=== PATIENT | female | born 1960 | race Caucasian/White ===

== ENCOUNTER → 2020-04-03 14:01 | Outpatient (BNVA) | payer MEDICARE, MEDICAID, SELFPAY | PROVIDERS: PCP Physician Assistant; Visit Provider Family Medicine Adult Medicine | DX: M54.17 Radiculopathy, lumbosacral region (principal); M54.12 Radiculopathy, cervical region; Z87.39 Personal history of other diseases of the musculoskeletal system and connective tissue; Z96.651 Presence of right artificial knee joint; Z96.641 Presence of right artificial hip joint; Z96.642 Presence of left artificial hip joint; Z98.1 Arthrodesis status; Z79.891 Long term (current) use of opiate analgesic | CPT/HCPCS: 99214 ==

== ENCOUNTER → 2020-05-17 09:06 | Outpatient (BNVA) | payer MEDICARE, MEDICAID, SELFPAY | PROVIDERS: PCP Physician Assistant; Referring Provider Physician Assistant; Visit Provider Family Medicine Adult Medicine | DX: M54.17 Radiculopathy, lumbosacral region (principal); M54.12 Radiculopathy, cervical region; Z96.651 Presence of right artificial knee joint; Z96.641 Presence of right artificial hip joint; Z96.642 Presence of left artificial hip joint; Z98.1 Arthrodesis status | CPT/HCPCS: 99212 ==

== ENCOUNTER 2020-06-08 13:18 | Emergency (ER) | payer MEDICARE, MEDICAID, SELFPAY ==
[2020-06-08 13:27] VITALS: BP 135/45; BP 135/79; PULSE 66; PULSE 70; RESP 16; TEMP 36.7; O2SAT 98; O2SAT 99; BMI 23.0
--- NOTE | 2020-06-08 13:36 | XR_ITS ---
EXAMINATION: XR CHEST CLINICAL INFORMATION: Chest pain COMPARISON: 08/09/2012 TECHNIQUE: Frontal view of the chest was obtained. FINDINGS: The cardiomediastinal silhouette is within normal limits. The lungs are well expanded. There is no focal consolidation, edema, or effusion. No pneumothorax. No acute osseous abnormality. Right breast prosthesis is seen. Monitoring leads overlie the chest. XR/XR chest 1V IMPRESSION: No acute findings.
--- NOTE | 2020-06-08 13:36 | CT_ITS ---
EXAMINATION: CT ABDOMEN AND PELVIS WITHOUT CONTRAST CLINICAL INFORMATION: Abdominal pain COMPARISON: 01/03/2020 TECHNIQUE: Multidetector volumetric imaging was performed from the superior aspect of the liver through the pubic symphysis. Sagittal and coronal reformatted images were obtained on the technologist's workstation. This CT examination was performed using dose optimization techniques as appropriate, variously including the following: *Automated exposure control *Adjustment of mA and/or kV according to patient size (this includes techniques or standardized protocols for targeted exams where dose is matched to indication/reason for exam; i.e. extremities or head) *Use of iterative reconstruction technique DLP: 477 mGy-cm FINDINGS: LUNG BASES: The visualized lung bases are unremarkable. LIVER, GALLBLADDER, AND BILIARY TREE: The liver is normal in size, shape, and attenuation. No focal hepatic lesion or biliary ductal dilatation is present. Gallbladder unremarkable. PANCREAS: Mild fatty atrophy of the pancreas. SPLEEN: Unremarkable. ADRENAL GLANDS: Unremarkable. KIDNEYS AND URETERS: The kidneys are normal in size, shape, and attenuation. No hydronephrosis, hydroureter, or calculi seen, although the distal ureters are obscured by beam hardening artifact associated patient's bilateral total hip arthroplasties.. No perinephric stranding. BLADDER: Unremarkable. GASTROINTESTINAL TRACT: The small and large bowel are unremarkable. The appendix is unremarkable. ABDOMINAL WALL: No significant hernia is appreciated. LYMPH NODES: Normal. VASCULAR: Unremarkable. PELVIC VISCERA: Hysterectomy. Ovaries unremarkable. OSSEOUS STRUCTURES: Unremarkable. CT/CT abdomen pelvis wo con IMPRESSION: No significant abnormality.
--- NOTE | 2020-06-08 13:36 | ECG_ITS ---
Test Reason : CHEST PAIN Blood Pressure : / mmHG Vent. Rate : 067 BPM Atrial Rate : 067 BPM P-R Int : 148 ms QRS Dur : 086 ms QT Int : 456 ms P-R-T Axes : 029 011 033 degrees QTc Int : 481 ms Normal sinus rhythm Prolonged QT Abnormal ECG When compared with ECG of 09-AUG-2012 14:20, Nonspecific T wave abnormality, improved in Inferior leads T wave inversion no longer evident in Anterior leads Referred By: Linnea Blake Electronically Signed By:SLICK VARGHESE MD
--- NOTE | 2020-06-08 13:50 | ED.CHESTPAIN ---
HPI - Chest Pain General Chief Complaint: Chest Pain Stated Complaint: VOMITTING/ CHEST PAIN Time Seen by Provider: 06/08/20 13:28 History of Present Illness HPI narrative: Patient is a 60-year-old female with a history of having high cholesterol. Having abdominal pain nausea. Radiates to the chest. Not associated with shortness of breath. The pain is been fairly constant over last 24 hours. No coughing or congestion or upper respiratory symptoms. No diaphoresis. No pain on urination. No history of obstruction. No history of abscess. No history of diverticulitis. No history of abdominal surgery. No fever no chills. No pain on urination. History of GI upset in the past. No history of diabetes, high cholesterol. Positive history of hypertension. No history of smoking. Patient is from home. Related Data Home Medications Medication Instructions Recorded Confirmed clonidine HCl 0.1 mg tablet 0.100f00? mg PO Q6H PRN 03/23/20 05/17/20 dicyclomine 20 mg tablet 20 mg PO 03/23/20 05/17/20 fluoxetine 40 mg capsule 40 mg PO QAM 03/23/20 05/17/20 naloxone 4 mg/actuation nasal spray 0 spray INTRANASAL DIRECTED 04/03/20 05/17/20 omeprazole 20 mg capsule,delayed 20 mg PO DAILY 04/03/20 05/17/20 release trazodone 100 mg tablet 100 mg PO BEDTIME PRN 04/27/20 05/17/20 Previous Rx's Medication Instructions Recorded cyclobenzaprine 10 mg tablet 10 mg PO Q12H #60 tab 03/28/20 hydroxyzine HCl 25 mg tablet 25 mg PO BID PRN 30 Days #60 tab 04/24/20 atorvastatin 40 mg tablet 40 mg PO DAILY #90 tab 04/28/20 trazodone 100 mg tablet 100 mg PO BEDTIME #30 tab 04/28/20 buprenorphine HCl 450 mcg buccal 450 mcg BUCCAL Q12H 30 Days #60 ea 05/17/20 film Allergies Allergy/AdvReac Type Severity Reaction Status Date / Time gabapentin [GABAPENTIN] Allergy Severe SWELLING, Verified 05/17/20 09:46 hives Iodinated Contrast Media Allergy Severe ANAPHYLAXIS Verified 05/17/20 09:46 [IV DYE, IODINE CONTAINING] Review of Systems Review of Systems: Constitutional: No Weight loss, No Fever, No Chills, No Night Sweats, No Fatigue, No Malaise ENT/Mouth: No Hearing loss, No Ear Pain, No Nasal Congestion, No Sinus Pain, No Hoarseness, No sore throat, No Rhinorrhea, No Swallowing Difficulty Eyes: No Eye Pain, No Swelling, No Redness, No Foreign Body, No Discharge, No Vision Changes Cardiovascular: Positive Chest Pain, No SOB, No Dyspnea on Exertion, No Orthopnea, No Edema, No Palpitations Respiratory: No Cough, No Sputum, No Wheezing, No Smoke Exposure, No Dyspnea Gastrointestinal: Positive nausea positive diffuse abdominal pain no melena Genitourinary: no irregular bleeding, No Dysuria, No Urinary Frequency, No Hematuria, No Urinary Incontinence, No Urgency, No Flank Pain, No Urinary Flow Changes, No Hesitancy Musculoskeletal: No joint pain, No Myalgias, No Joint Swelling Skin: No Skin Lesions, No rash Neuro: No Weakness, No Numbness, No Paresthesias, No Loss of Consciousness, No Dizziness, No Headache Psych: No Anxiety/Panic, No Depression, No SI/HI/AH/VH, No Social Issues, Heme/Lymph: No Bruising, No Bleeding,No Lymphadenopathy Endocrine: No Polyuria, No Polydipsia, No Temperature Intolerance PMFSH Past Medical History Attestation statement: The following information was validated with the patient. Medical History Anxiety Cervical radiculopathy Depression FH: bilateral hip replacements History of avascular necrosis of capital femoral epiphysis HTN (hypertension) IBS (irritable bowel syndrome) Lumbosacral neuritis Surgical History H/O breast implant H/O cervical discectomy History of ankle surgery History of fusion of cervical spine History of left hip replacement History of right hip replacement History of right knee joint replacement Status post right knee replacement Family History Family History (Updated 04/03/20 @ 14:45 by Bella Sanabria RN) Father No problems noted. Mother No problems noted. Son No problems noted. Maternal Grandfather No problems noted. Social History Social History (Updated 04/03/20 @ 14:45 by Bella Sanabria RN) Alcohol intake: current Alcohol intake frequency: a few times a week Alcohol type: beer Smoking Status: Never smoker Use of substances other than those prescribed or required for medical reasons: No Advance Directives: No Advance Directives Information Provided: Yes Physical Exam Vital Signs: Vital Signs: Last Vital Signs Temp 98.1 F 06/08/20 13:27 Pulse 66 06/08/20 13:27 Resp 16 06/08/20 13:27 BP 135/45 L 06/08/20 13:27 Pulse Ox 98 06/08/20 13:27 Body Mass Index 23.0 Appearance: Alert. Oriented X3. No acute distress. Eyes: Pupils equal, round and reactive to light. ENT: Pharynx normal. Neck: Normal inspection. Neck supple. No lymph nodes noted. No crepitus CVS: Normal heart rate and rhythm. Pulses normal. Normal S1 and S2 Respiratory: No respiratory distress. Breath sounds normal. No Wheezing. No rales Abdomen: Soft and nontender. No rigidity. No distention. good BS x4 Skin: Skin warm and dry. Normal skin color. Normal skin turgor. Extremities: No lower extremity edema. Neurovascular intact to all extremities. No Lacerations. No Rash Neuro: Oriented X 3. No motor deficit. No sensory deficit. Moving all extermities. No slurred speech MDM - Chest Pain MDM Narrative Medical decision making narrative: CT scan of the abdomen grossly negative for any acute findings. No abscess, perforation, abdominal aortic aneurysm noted. Patient's EKG showed a sinus pattern diffuse T-wave flattening noted. Patient has chest pain that is atypical for ACS. Patient's cardiac enzyme was negative. Pain has been greater than 6 hours. Unlikely secondary to ACS. Patient's has a history of chronic abdominal pain. Will discharge patient Differential Diagnosis Differential diagnosis: Likely pneumothorax, stable angina, unstable angina pectoris, atypical chest pain, st elevation myocardial infarction, costochondritis, chest pain and biliary colic Medical Records Data Attestation: I reviewed the patient's medical records. Lab Data Attestation: I reviewed the patient's lab results. Result diagrams: 06/08/20 13:56 06/08/20 13:56 Labs: Lab Results 06/08/20 06/08/20 06/08/20 Range/Units 13:56 13:56 13:56 WBC 5.4 (4.8-10.8) X10*3/uL RBC 3.62 L (4.20-5.50) X10*6/uL Hgb 11.3 L (12.0-16.0) g/dl Hct 33.6 L (37-47) % MCV 92.8 (80-98) fL MCH 31.2 (27.0-33.0) pg MCHC 33.6 (31.0-35.0) g/dl RDW 12.7 (11.0-16.0) % Plt Count 275 (160-400) X10*3/uL MPV 9.5 (9.4-12.3) fL Immature Gran % (Auto) 0.4 (0.0-0.4) % Neut % (Auto) 71.0 (45-73) % Lymph % (Auto) 22.6 (20-40) % [place] % (Auto) 5.2 (2-11) % Eos % (Auto) 0.2 (0-4) % Baso % (Auto) 0.6 (0-2) % Lymph # (Auto) 1.2 (1.2-4.9) X10*3/uL [place] # (Auto) 0.3 (0.1-1.2) X10*3/uL Eos # (Auto) 0.0 (0.0-0.4) X10*3/uL Baso # (Auto) 0.0 (0.0-0.2) X10*3/uL Abs Immat Gran (auto) 0.02 (0.00-0.03) X10*3/uL Absolute Neuts (auto) 3.8 (2.0-8.3) X10*3/uL Absolute Nucleated RBC 0.000 (0.0-0.012) X10*3/uL Nucleated RBC % (auto) 0.0 (0.0-0.2) /100WBC Sodium 137 (135-145) mmol/L Potassium 4.0 (3.3-5.1) mmol/l Chloride 100 (96-108) mmol/L Carbon Dioxide 25 (22-29) mmol/L Anion Gap 16 (12-20) BUN 15 (9-16) mg/dL Creatinine 0.78 (0.5-1.4) mg/dL Estim Creat Clear Calc 65.0 Estimated GFR > 60 Random Glucose 101 (60-115) mg/dL Calcium 8.5 (8.4-10.2) mg/dL Total Bilirubin 0.4 (0.0-1.0) mg/dL Direct Bilirubin 0.2 (0.0-0.5) mg/dL AST 30 (5-31) U/L ALT 24 (0-31) U/L Alkaline Phosphatase 90 (39-117) U/L Troponin I High Sens < 3.5 (<3.5-17.0) ng/L Total Protein 6.4 L (6.5-8.0) g/dL Albumin 4.0 (3.5-5.0) g/dL Lipase 19 (8-78) U/L ECG Data ECG #1: Interpretation: Sinus heart rate is 70 VT QRS QT within normal limits diffuse T-wave flattening noted. Discharge Plan Discharge Clinical Impression: Chest pain, Abdominal pain in female Patient Disposition: Home, Self-Care Instructions: Abdominal Pain (ED), Chest Pain (ED) Prescriptions: No Action cyclobenzaprine 10 mg tablet 10 mg PO Q12H Qty: 60 RF: 2 hydroxyzine HCl 25 mg tablet 25 mg PO BID PRN (Reason: sleep) 30 Days Qty: 60 RF: 2 trazodone 100 mg tablet 100 mg PO BEDTIME PRNRF: 0 atorvastatin 40 mg tablet 40 mg PO DAILY Qty: 90 RF: 1 trazodone 100 mg tablet 100 mg PO BEDTIME Qty: 30 RF: 3 omeprazole 20 mg capsule,delayed release(DR/EC) 20 mg PO DAILY RF: 0 Narcan 4 mg/actuation spray,non-aerosol 0 spray intranasal DIRECTED RF: 0 [place] 450 mcg film 450 mcg buccal Q12H 30 Days Qty: 60 RF: 1 clonidine HCl 0.1 mg tablet 0.100f00? mg PO Q6H PRN (Reason: withdrawal symptom) RF: 0 dicyclomine 20 mg tablet 20 mg PO RF: 0 fluoxetine 40 mg capsule 40 mg PO QAM RF: 0 Referrals: Gaston Mejia PA-C [Primary Care Provider] - 2 days
[2020-06-08] MEDS: 0.9 % Sodium Chloride 1,000 ML 999 ML IVCONT (13:53)
[2020-06-08] MEDS: Acetaminophen 325 MG TABLET 650 MG PO (13:53)
[2020-06-08 14:05] LABS: MANUAL DIFF FLAG NO
[2020-06-08 14:07] LABS: Basophils Percent Auto 0.6 % (0-2); Eosinophils Percent Auto 0.2 % (0-4); Hematocrit 33.6 % (37-47); Hemoglobin 11.3 g/dl (12.0-16.0); Imm Gran Abs Auto 0.02 X10*3/uL (0.00-0.03); Imm Gran Pct Auto 0.4 % (0.0-0.4); Lymphocytes Absolute Auto 1.2 X10*3/uL (1.2-4.9); Lymphocytes Percent Auto 22.6 % (20-40); Mean Corpuscular HGB Conc 33.6 g/dl (31.0-35.0); Mean Corpuscular Hemoglobin 31.2 pg (27.0-33.0); Mean Corpuscular Volume 92.8 fL (80-98); Mean Platelet Volume 9.5 fL (9.4-12.3); Monocytes Absolute Auto 0.3 X10*3/uL (0.1-1.2); Monocytes Percent Auto 5.2 % (2-11); Neutrophils Absolute Auto 3.8 X10*3/uL (2.0-8.3); Platelet Count 275 X10*3/uL (160-400); Red Blood Count 3.62 X10*6/uL (4.20-5.50); Red Cell Distribution Width 12.7 % (11.0-16.0); White Blood Count 5.4 X10*3/uL (4.8-10.8)
[2020-06-08 14:26] LABS: Alanine Aminotransferase 24 U/L (0-31); Alkaline Phosphatase 90 U/L (39-117); Anion Gap 16 (12-20); Aspartate Amino Transferase 30 U/L (5-31); Bilirubin Direct 0.2 mg/dL (0.0-0.5); Bilirubin Total 0.4 mg/dL (0.0-1.0); Blood Urea Nitrogen 15 mg/dL (9-16); Calcium 8.5 mg/dL (8.4-10.2); Carbon Dioxide 25 mmol/L (22-29); Chloride 100 mmol/L (96-108); Estimated Glomerular Filt Rate > 60; Glucose Random 101 mg/dL (60-115); Lipase 19 U/L (8-78); Sodium 137 mmol/L (135-145); Total Protein 6.4 g/dL (6.5-8.0)
[2020-06-08 14:30] LABS: Troponin-I High Sensitivity < 3.5 ng/L (<3.5-17.0)
== END 2020-06-08 15:54 | disposition home or self-care (01) ==
PROVIDERS: Emergency Provider Emergency Medicine Emergency Medical Services; PCP Physician Assistant
DX: R07.9 Chest pain, unspecified (principal); R10.9 Unspecified abdominal pain; E78.00 Pure hypercholesterolemia, unspecified; Z79.899 Other long term (current) drug therapy
CPT/HCPCS: 36415; 71045; 74176; 80048; 80076; 83690; 84484; 85025; 93005; 96361; 96374; 99284

== ENCOUNTER 2021-04-05 10:08 | Outpatient (REF) | payer MEDICARE, MEDICAID, SELFPAY ==
[2021-04-05 11:41] LABS: Hemoglobin 12.9 g/dl (12.0-16.0); Mean Corpuscular HGB Conc 33.9 g/dl (31.0-35.0); Mean Corpuscular Hemoglobin 30.4 pg (27.0-33.0); Mean Corpuscular Volume 89.4 fL (80-98); Mean Platelet Volume 9.6 fL (9.4-12.3); Platelet Count 462 X10*3/uL (160-400); Red Blood Count 4.25 X10*6/uL (4.20-5.50); Red Cell Distribution Width 12.2 % (11.0-16.0); White Blood Count 7.5 X10*3/uL (4.8-10.8)
[2021-04-05 14:06] LABS: Alanine Aminotransferase 16 U/L (0-31); Albumin Level 4.9 g/dL (3.5-5.0); Alkaline Phosphatase 98 U/L (39-117); Anion Gap 17 (12-20); Aspartate Amino Transferase 22 U/L (5-31); Bilirubin Total 0.8 mg/dL (0.0-1.0); Blood Urea Nitrogen 9 mg/dL (9-16); Calcium 10.4 mg/dL (8.4-10.2); Carbon Dioxide 27 mmol/L (22-29); Chloride 100 mmol/L (96-108); Cholesterol 219 mg/dL; Estimated Glomerular Filt Rate > 60; Glucose Fasting 113 mg/dL (60-99); HDL Cholesterol 81 mg/dL; LDL Cholesterol Calculated 111 mg/dl; Potassium 3.5 mmol/L (3.3-5.1); Sodium 140 mmol/L (135-145); Total Protein 7.8 g/dL (6.5-8.0); Triglycerides 135 mg/dL
[2021-04-05 14:14] LABS: TSH reflex Free T4 0.84 uIU/mL (0.32-4.0)
== END 2021-04-05 10:09 | disposition home or self-care (01) ==
LOC: HO.HMGCLDS 10:08
PROVIDERS: PCP Physician Assistant; Visit Provider Physician Assistant
DX: I10 Essential (primary) hypertension (principal); E78.2 Mixed hyperlipidemia
CPT/HCPCS: 36415; 80053; 80061; 84443; 85027

== ENCOUNTER 2022-11-01 10:48 | Outpatient (REF) | payer MEDICARE, MEDICAID, SELFPAY ==
--- NOTE | ~2022-11-01 | XR_ITS ---
EXAMINATION: XR CHEST CLINICAL INFORMATION: Cough. COMPARISON: Chest radiograph dated 06/08/2020. TECHNIQUE: 2 views of the chest were obtained. FINDINGS: No airspace consolidation. No pleural effusion or pneumothorax. Stable cardiomediastinal silhouette. Right chest wall breast implant. XR/XR chest 2V IMPRESSION: No acute cardiopulmonary findings.
== END 2022-11-01 10:49 | disposition home or self-care (01) ==
LOC: HO.HMGCX 10:48
PROVIDERS: PCP Physician Assistant; Visit Provider Physician Assistant Medical
DX: R05.9 Cough, unspecified (principal)
CPT/HCPCS: 71046

== ENCOUNTER 2022-12-21 15:29 | Emergency (ER) | payer MEDICARE, MEDICAID, SELFPAY ==
[2022-12-21 15:49] VITALS: BP 103/79; PULSE 112; RESP 18; TEMP 36.6; O2SAT 90; BMI 20.4
[2022-12-21 15:56] VITALS: PULSE 102; O2SAT 97
--- NOTE | 2022-12-21 16:01 | ED_ITS ---
HPI - General Adult General Chief complaint: General Medical Stated complaint: SORE THROAT Time Seen by Provider: 12/21/22 16:31 Source: patient Mode of arrival: ambulatory Limitations: no limitations History of Present Illness HPI narrative: Patient history of anxiety depression hypertension IBS comes in with sore throat for the last 4- 5 days, does have muffled voice no fever no chills difficulty in swallowing no stridor no shortness of breath patient does have cough for last 5 months mostly dry had x-ray last month which was negative for last 2 days patient unable to take any liquids even spitting it out because of pain does not go down Related Data Home Medications Medication Instructions Recorded Confirmed clonidine HCl 0.1 mg tablet 0.100f00? mg PO Q6H PRN withdrawal 03/23/20 11/01/22 symptom dicyclomine 20 mg tablet 20 mg PO 03/23/20 11/01/22 omeprazole 20 mg capsule,delayed 20 mg PO DAILY 04/03/20 11/01/22 release Previous Rx's Medication Instructions Recorded trazodone 100 mg tablet 100 mg PO BEDTIME #30 tabs 12/05/21 amoxicillin 500 mg capsule 2,000 mg PO ONCE 1 day #4 caps 12/17/21 blood pressure monitor #1 ea 12/24/21 hydroxyzine HCl 25 mg tablet 25 mg PO BID PRN for insomnia #60 06/02/22 tabs buprenorphine HCl 750 mcg buccal 750 mcg buccal Q12H 30 days #60 ea 09/16/22 film cyclobenzaprine 10 mg tablet 10 mg PO Q12H #60 tabs 09/16/22 duloxetine 40 mg capsule,delayed 40 mg PO DAILY #30 caps 09/16/22 release benzonatate 200 mg capsule 200 mg PO BID-TID PRN cough #30 11/01/22 caps hydrochlorothiazide 25 mg tablet 25 mg PO DAILY #30 tabs 11/01/22 atorvastatin 40 mg tablet 40 mg PO DAILY #90 tabs 11/19/22 Allergies Allergy/AdvReac Type Severity Reaction Status Date / Time gabapentin [GABAPENTIN] Allergy Severe SWELLING, Verified 12/21/22 16:35 hives Iodinated Contrast Media Allergy Severe ANAPHYLAXIS Verified 12/21/22 16:35 [IV DYE, IODINE CONTAINING] Review of Systems Review of Systems: Yes all other systems are reviewed and are negative PMFSH Past Medical History Medical History Anxiety Cervical radiculopathy Depression FH: bilateral hip replacements History of avascular necrosis of capital femoral epiphysis HTN (hypertension) IBS (irritable bowel syndrome) Lumbosacral neuritis Surgical History H/O breast implant H/O cervical discectomy History of ankle surgery History of fusion of cervical spine History of left hip replacement History of right hip replacement History of right knee joint replacement Status post right knee replacement Family History Family History Father Schizophrenia Mother Osteoporosis Son No problems noted. Maternal Grandfather No problems noted. Brother In good health Sister In good health Other Mental health disorder Substance use disorder Social History Social History Housing: Apartment Alcohol intake: current Alcohol intake frequency: a few times a week Alcohol type: beer Patient Tobacco Use Status: Never used Tobacco Smoked in Last 30 Days: No e-Cigarette/Vaping Use: Never Used Second Hand Smoke Exposure: Yes Use of substances other than those prescribed or required for medical reasons: No Advance Directives: No Advance Directives Information Provided: No Patient : No service: No Current occupational status: disabled Cognitive needs: No Hearing needs: No Vision needs: No Physical Exam ED Vital Signs: Vital Signs - 24 hr 12/21/22 15:49 12/21/22 16:03 12/21/22 18:28 Temperature 98 F Pulse Rate 112 H 106 H 99 Respiratory Rate 18 22 H 26 H Blood Pressure 103/79 134/73 153/72 H Pulse Oximetry 90 L 97 95 Oxygen Delivery Method Room Air Room Air Room Air 12/21/22 20:29 12/21/22 22:17 Temperature 97.9 F 98.3 F Pulse Rate 93 92 Respiratory Rate 20 20 Blood Pressure 135/73 125/59 L Pulse Oximetry 95 96 Oxygen Delivery Method Room Air Room Air BMI result Body Mass Index 20.4 Appearance: Alert. Oriented X3. No acute distress. ENT: Edematous swelling of uvula and bilat peritonsillar area no stridor no exudates diffuse erythema++ Oral Mucosa moist Neck: Normal inspection. Neck supple. No cervical lymphadenopathy CVS: Normal heart rate and rhythm. Pulses normal. Respiratory: No respiratory distress. Equal air entry bilateral, no wheezing/rales/rhonchi Abdomen: Soft and nontender. Bowel sounds are present, Skin: Skin warm and dry. Normal skin color. Normal skin turgor. Extremities: No lower extremity edema. No calf tenderness Neuro: Oriented X 3. Course Course Course Narrative: RME: 62 yold female presents to the ED sore throat and drooling for 3 days. patient not able tolerate solid foods or liquids. patient at triage 96 % to 90% 02 saturation. labs ordered. Soft tiissue CT neck ordered. decadron ordered. patient muffled voice, sore throat, and drooling in triage Medications Administered Discontinued Medications Generic Name Dose Route Start Last Admin Trade Name Freq PRN Reason Stop Dose Admin Dexamethasone Sodium Phosphate 10 mg 12/21/22 15:52 12/21/22 16:35 Dexamethasone Sod Phosphate 10 Mg/Ml Vial IVPUSH 12/21/22 15:53 10 mg ONCE ONE Administration Diphenhydramine HCl 25 mg 12/21/22 19:58 12/21/22 20:30 Diphenhydramine Hcl 50 Mg/Ml Vial IVPUSH 12/21/22 19:59 25 mg ONCE ONE Administration Sodium Chloride 1,000 mls @ 999 mls/hr 12/21/22 16:57 12/21/22 18:25 Ns IV 12/21/22 17:57 Infused .Q1H1M ONE Infusion Ceftriaxone Sodium 1 gm/ 50 mls @ 100 mls/hr 12/21/22 16:57 12/21/22 17:43 Sodium Chloride IV 12/21/22 17:26 Infused ONCE ONE Infusion Potassium Chloride 10 meq in 100 mls @ 100 mls/hr 12/21/22 21:32 12/21/22 23:07 Potassium Chloride/H20 IV 12/21/22 22:31 Infused ONCE ONE Infusion Sodium Chloride 1,000 mls @ 999 mls/hr 12/21/22 22:15 12/21/22 23:07 Ns IV 12/21/22 23:15 Infused .Q1H1M ALYSSA Infusion Ketorolac Tromethamine 30 mg 12/21/22 16:57 12/21/22 17:09 Ketorolac Tromethamine 30 Mg/Ml Vial IVPUSH 12/21/22 16:58 30 mg ONCE ONE Administration Morphine Sulfate 2 mg 12/21/22 19:58 12/21/22 20:31 Morphine Sulfate 2 Mg/Ml Cartridge IVPUSH 12/21/22 19:59 2 mg ONCE ONE Administration Protocol Potassium Bicarbonate 25 meq 12/21/22 19:57 12/21/22 22:06 Potassium Bicarbonate/Cit Ac 25 Meq Tablet.Eff PO 12/21/22 19:58 Not Given ONCE ONE Medical Decision Making Medical Decision Making MDM Narrative: Patient refused parapharyngeal inflammation without any significant fluid collection unable to swallow drink even liquids for last 2 days saturating 95% at room air no stridor noticed no ENT service available at our hospital or neighboring hospital case discussed with transfer team for [facility] accepted the patient to be transferred to ED under Dr. dodd patient received 10 mg IV Decadron and IV Rocephin was also given potassium 10 mEq IV rapid strep was negative chest x-ray negative for infiltrate Lab Data [facility] Lab Attestation statement: I reviewed the patient's lab results. 12/21/22 16:25 12/21/22 16:25 Labs: Lab Results 12/21/22 12/21/22 12/21/22 Range/Units 16:25 16:25 17:16 WBC 20.9 H (4.8-10.8) X10*3/uL RBC 3.49 L (4.20-5.50) X10*6/uL Hgb 11.3 L (12.0-16.0) g/dl Hct 32.8 L (37.0-47.0) % MCV 94.0 (80.0-98.0) fL MCH 32.4 (27.0-33.0) pg MCHC 34.5 (31.0-35.0) g/dl RDW 12.5 (11.0-16.0) % Plt Count 365 (160-400) X10*3/uL MPV 8.9 L (9.4-12.3) fL Immature Gran % (Auto) 0.5 H (0.0-0.4) % Neut % (Auto) 84.1 H (45-73) % Lymph % (Auto) 6.8 L (20-40) % [place] % (Auto) 8.1 (2-11) % Eos % (Auto) 0.1 (0-4) % Baso % (Auto) 0.4 (0-2) % Lymph # (Auto) 1.4 (1.2-4.9) X10*3/uL [place] # (Auto) 1.7 H (0.1-1.2) X10*3/uL Eos # (Auto) 0.0 (0.0-0.4) X10*3/uL Baso # (Auto) 0.1 (0.0-0.2) X10*3/uL Abs Immat Gran (auto) 0.11 H (0.00-0.03) X10*3/uL Absolute Neuts (auto) 17.5 H (2.0-8.3) x10*3/uL Absolute Nucleated RBC 0.000 (0.0-0.012) X10*3/uL Nucleated RBC % (auto) 0.0 (0.0-0.2) /100WBC Smear Tech's Comments VERIFIED Sodium 140 (135-145) mmol/L Potassium 3.1 L (3.3-5.1) mmol/L Chloride 97 (96-108) mmol/L Carbon Dioxide 27 (22-29) mmol/L Anion Gap 19 (12-20) BUN 5 L (9-16) mg/dL Creatinine 0.75 (0.5-1.4) mg/dL Estim Creat Clear Calc 65.6 Estimated GFR > 60 Random Glucose 106 (60-115) mg/dL Calcium 10.4 H (8.4-10.2) mg/dL Total Bilirubin 0.7 (0.0-1.0) mg/dL AST 36 H (5-31) U/L ALT 26 (0-31) U/L Alkaline Phosphatase 107 (39-117) U/L Total Protein 7.4 (6.5-8.0) g/dL Albumin 4.3 (3.5-5.0) g/dL S. pyogenes GrpA FRANCIE Negative (Negative) Radiology Impression Discussion of test interpretation with radiology: I have reviewed the radiologist's reading. Radiologist Impression: CT/CT soft tissue neck wo IV con IMPRESSION: The diagnostic accuracy of this examination is limited due to the absence of intravenous contrast. There is asymmetric thickening of the right tonsillar pillar with associated stranding within the parapharyngeal space. There is also low-density mucosal thickening of the right lateral aspect of the epiglottis. These findings may simply represent a manifestation of pharyngitis/tonsillitis however a mucosal neoplasm cannot be definitively excluded on the basis of this examination therefore correlation with direct visualization is recommended. There are a few somewhat prominent albeit otherwise nonspecific cervical lymph nodes. ? There are chronic changes of an anterior cervical discectomy and fusion with bridging bone completely fuses the C4-C6 vertebra. There is junctional spondylosis above and below the fused segments at the levels of C3-C4 and C6-C7. Slight anterolisthesis of C7 on T1 related to advanced facet degenerative changes at this level. Canal patency is not well assessed on this examination due to inherent limitations of CT without intrathecal contrast. If there are clinical symptoms of compressive myelopathy then a dedicated cervical spine MRI can be obtained for better anatomic characterization of the cord and canal. Discharge Plan Discharge Clinical Impression: Pharyngeal inflammation, Dysphagia Patient Disposition: [facility] Hospital Transfer Details: [facility] ED Dr. dodd Prescriptions: No Action trazodone 100 mg tablet 100 mg PO BEDTIME Qty: 30 1RF amoxicillin 500 mg capsule 2,000 mg PO ONCE 1 Days Qty: 4 0RF Rx Instructions: Take 1 hour prior to dental procedure hydroxyzine HCl 25 mg tablet 25 mg PO BID PRN (Reason: for insomnia) Qty: 60 3RF buprenorphine HCl 750 mcg film 750 mcg buccal Q12H 30 Days Qty: 60 0RF cyclobenzaprine 10 mg tablet 10 mg PO Q12H Qty: 60 3RF duloxetine 40 mg capsule,delayed release(DR/EC) 40 mg PO DAILY Qty: 30 3RF atorvastatin 40 mg tablet 40 mg PO DAILY Qty: 90 0RF benzonatate 200 mg capsule 200 mg PO BID-TID PRN (Reason: cough) Qty: 30 0RF hydrochlorothiazide 25 mg tablet 25 mg PO DAILY Qty: 30 1RF (DME) blood pressure monitor Kit See Rx Instructions .Route Qty: 1 0RF Rx Instructions: As directed omeprazole 20 mg capsule,delayed release(DR/EC) 20 mg PO DAILY clonidine HCl 0.1 mg tablet 0.100f00? mg PO Q6H PRN (Reason: withdrawal symptom) dicyclomine 20 mg tablet 20 mg PO Interventions: Acute Care Transfer Worksheet (ED) Last Done: 12/21/22 23:12 Discharge Date/Time: 12/21/22 23:13
[2022-12-21 16:03] VITALS: BP 134/73; PULSE 106; RESP 22; O2SAT 97
--- NOTE | 2022-12-21 16:47 | PC.NURSE ---
PT IN ROOM. SaO2 high 90s. pt restless, coughing. Throat red and swollow, difficult visibility due to swelling but airway patent, auscultation of airway revealed good passage of air flow. lung sounds clear throughout. pt tachy on the monitor. other Vitals stable. MD to see pt
--- NOTE | 2022-12-21 17:35 | PC.NURSE ---
pt c/o R ear pain associated with R sided throat pain, tympanic membrane clearly visualized, no drainage from ear
[2022-12-21 18:28] VITALS: BP 153/72; PULSE 99; RESP 26; O2SAT 95
[2022-12-21 20:29] VITALS: BP 135/73; PULSE 93; RESP 20; TEMP 36.6; O2SAT 95
--- NOTE | 2022-12-21 20:39 | PC.NURSE ---
Pt medicated for pain via IV as ordered. Very difficult to swallow liquids and is unable to swallow potassium in water as it is very painful. Pt reports it gets stuck first before it goes down. aware
[2022-12-21 22:17] VITALS: BP 125/59; PULSE 92; RESP 20; TEMP 36.8; O2SAT 96
--- NOTE | 2022-12-21 23:12 | PC.NURSE ---
Nursing report given to nurse Brown at [facility]. Pt being transferred via EMS.
== END 2022-12-21 23:13 | disposition short-term general hospital (02) ==
PROVIDERS: Emergency Provider Internal Medicine; PCP Physician Assistant
DX: J02.9 Acute pharyngitis, unspecified (principal); R13.10 Dysphagia, unspecified; R05.9 Cough, unspecified; Z20.822 Contact with and (suspected) exposure to COVID-19; Z20.828 Contact with and (suspected) exposure to other viral communicable diseases; Z79.899 Other long term (current) drug therapy
CPT/HCPCS: 36415; 70490; 71045; 80053; 85025; 87651; 96365; 96375; 96376; 99285; J0696; J1100; J1200; J1885; J2270

== ENCOUNTER 2023-01-21 10:03 | Outpatient (AMB) | payer MEDICARE, MEDICAID, SELFPAY ==
[2023-01-21 10:06] VITALS: BP 114/80; PULSE 90; O2SAT 96; BMI 20.8
--- NOTE | 2023-01-21 10:06 | A.OFFPC_ITS ---
Vital Signs 01/21/23 10:06 Height 5 ft 3 in Weight 117 lb 6 oz BMI 20.8 BP 114/80 Blood Pressure Location Lt brachial Position Sitting Pulse 90 Pulse Source Pulse Oximeter Pulse Oximetry (%) 96 Oxygen Delivery Method Room Air Intake Visit Reasons: Medication review Intake Note: Pt is here for medication review with PCP. Cost Manager Required: No Accompanied by: Self / Same As Patient Allergies gabapentin [GABAPENTIN] Allergy (Severe, Verified 01/21/23 10:24) SWELLING, hives Iodinated Contrast Media [IV DYE, IODINE CONTAINING] Allergy (Severe, Verified 01/21/23 10:24) ANAPHYLAXIS Medication List - Last Reconciled 01/21/23 by Gaston Mejia PA-C atorvastatin 40 mg PO DAILY blood pressure monitor As directed buprenorphine HCl 750 mcg buccal Q12H 30 days calcium carbonate-vitamin D3 600 mg-20 mcg (800 unit) 1 tab PO DAILY clonidine HCl 0.100f00? mg PO Q6H PRN cyclobenzaprine 10 mg PO Q12H dicyclomine 20 mg PO hydrochlorothiazide 25 mg PO DAILY omeprazole 20 mg PO DAILY trazodone 100 mg PO BEDTIME Tobacco use date assessed: 06/24/22 Dental Screening Dental Screen Date: 01/21/23 Did you have a dental visit in the last 12 months?: Yes Did you have a dental problem in the last 6 months where you did not have access to dental care?: No Was dental information given to patient?: Patient has dentist HPI Medication review HPI Details Patient is a 62 -year-old female here today for follow-up visit Patient has a past medical history significant for lumbosacral neuritis, anxiety, hypertension, hyperlipidemia depression, cervical radiculopathy, osteonecrosis of right ankle and hips. Concerns--> patient recently admitted to [facility] for acute dysphasia non done aphasia. Was found to have Mary off a Godfrey and fair and she will inflammation. ENT consulted and did laryngoscopy without any concerning evidence. She did have an endoscopy that did show evidence of esophageal candidiasis and was started on antifungal therapy. She reports currently her swelling is much improved. She does report her throat clearing cough has reoccurred. .. Hyperlipidemia:? Has been on statin therapy.? Most recent cholesterol panel remains borderline high with total cholesterol 219. . Hypertension:? She reports blood pressures at home have been stable.? Denies any headaches, chest discomfort or palpitations.? Will continue her on current dose of lisinopril hydrochlorothiazide.. .. Lumbar sacral neuritis: Continues on Belbuca 750 mcg b.i.d. with decent pain relief. Laboratory Tests 12/21/22 12/21/22 16:25 17:16 WBC 20.9 H RBC 3.49 L S. pyogenes GrpA N AT Negative [facility] Medical History Anxiety Cervical radiculopathy Depression FH: bilateral hip replacements History of avascular necrosis of capital femoral epiphysis HTN (hypertension) IBS (irritable bowel syndrome) Lumbosacral neuritis Surgical History H/O breast implant H/O cervical discectomy History of ankle surgery History of fusion of cervical spine History of left hip replacement History of right hip replacement History of right knee joint replacement Status post right knee replacement Family History Father Schizophrenia Mother Osteoporosis Son No problems noted. Maternal Grandfather No problems noted. Brother In good health Sister In good health Other Mental health disorder Substance use disorder Social History Housing: Apartment Alcohol intake: current Alcohol intake frequency: a few times a week Alcohol type: beer Patient Tobacco Use Status: Never used Tobacco e-Cigarette/Vaping Use: Never Used Second Hand Smoke Exposure: Yes service: No Current occupational status: disabled Cognitive needs: No Hearing needs: No Vision needs: No Questionnaire Thrive Questionnaire Date Thrive assessed: 06/24/22 FAWN-7 AMB Questionnaire FAWN-7 Date FAWN - 7 assessed: 06/24/22 Source: Developed by Drs. Paul Fraser, Kelsey Salcido, Jj Bateman and colleagues, with an educational denise from [employer] Review of Systems Const Denies headache(s) Eyes Denies loss of vision ENT Denies vertigo, Denies dizziness, Denies headache(s) and Denies sore throat Card Denies chest pain, Denies leg edema and Denies lightheadedness Resp Denies cough, Denies hemoptysis and Denies wheezing GI Denies abdominal pain, Denies melena, Denies constipation, Denies diarrhea and Denies vomiting Denies urinary frequency, Denies dysuria and Denies urinary urgency Musc Denies arthralgias, Denies joint swelling, Denies numbness and Denies tingling Neuro Denies Abnormal speech present, Denies behavioral changes, Denies vertigo, Denies dizziness, Denies headache(s), Denies loss of vision, Denies memory loss, Denies numbness and Denies tingling Psych Denies anxiety, Denies behavioral changes, Denies depression, Denies memory loss and Denies panic attacks Jd/Lymph Denies easy bleeding and Denies easy bruising Aller/Immun Denies wheezing Physical exam (Primary Care) Vital Signs: Last Vital Signs Pulse 90 01/21/23 10:06 BP 114/80 01/21/23 10:06 Pulse Ox 96 01/21/23 10:06 Oxygen Delivery Method Room Air 01/21/23 10:06 BMI result Body Mass Index 20.8 Tobacco/Smoking Status: Tobacco use Status Tobacco use date assessed 06/24/22 01/21/23 10:09 Patient Tobacco Use Status Never used Tobacco 01/21/23 10:09 e-Cigarette/Vaping Use Never Used 01/21/23 10:09 Thrive Assessment: Date of Thrive Assessment Date Thrive assessed 06/24/22 01/21/23 10:09 Const General: healthy appearing, no acute distress, alert and awake Nutritional Appearance: well nourished Orientation/consciousness: oriented to person, oriented to place and oriented to time HENMT Ears: TM's normal bilaterally General nose exam: Normal nasal mucous membranes and turbinates present Eyes Conjunctivae: conjunctivae normal Sclerae: sclerae normal Pupils: Equal, round and reactive pupils present Neck Neck: Yes no lymphadenopathy and Yes no JVD Thyroid: Thyroid normal Carotids: no bruits Resp Effort & Inspection: normal respiratory effort and not tachypneic Auscultation: no crackles, no rales, no rhonchi and no wheezes Cardio Rate: regular rate Rhythm: regular rhythm Heart sounds: no murmurs and normal S1 and S2 GI Palpation (GI): Soft to palpation, nontender, no hepatomegaly and no splenomegaly Auscultation: normal bowel sounds Skin General skin exam: no rashes or lesions noted and dry skin Neuro General: oriented to person, oriented to place and oriented to time Cranial nerves: Yes Equal, round and reactive pupils present Speech: No Abnormal speech present Gait exam (Neuro): Normal gait present Motor exam (neuro): no tremor noted Extrem Right upper extremity: full ROM Left upper extremity: full ROM Right lower extremity: full ROM; no edema Left lower extremity: full ROM; no edema Psych Mental Status: mental status grossly normal Speech and movement: Normal speech and movement present Affect: normal affect Attitude: cooperative Thought process: Normal thought process present Assessment and Plan Assessment & Plan (1) Esophageal candidiasis: Code(s): B37.81 - Candidal esophagitis Plan: As per HPI patient was started on liquid Diflucan and steroid taper for her e sophageal candidiasis. Has follow-up with Gastroenterology ( Dr. West). Will send new script for Diflucan liquid as patient does report having some throat clearing cough reoccur. Her swallowing is much improved. (2) HTN (hypertension): Code(s): I10 - Essential (primary) hypertension Qualifiers: Hypertension type: essential hypertension Qualified Code(s): I10 - Essential (primary) hypertension Plan: Blood pressure acceptable today in office. Will continue her antihypertensive therapy with goal blood pressure remain below 140/90 (3) Lumbosacral neuritis: Code(s): M54.17 - Radiculopathy, lumbosacral region Plan: Patient continues to have lumbar spine pain though has been manageable with [id number] analgesics and Belbuca 75 mcg b.i.d.. (4) HLD (hyperlipidemia): Code(s): E78.5 - Hyperlipidemia, unspecified Qualifiers: Hyperlipidemia type: mixed hyperlipidemia Qualified Code(s): E78.2 - Mixed hyperlipidemia Plan: Patient continues on statin therapy. Will recheck fasting lipid panel to assure appropriate total cholesterol and LDL. Goal LDL to be below 130 Orders: Orders [facility] [place]. Panel Fast Today I10 - Essential (primary) hypertension Lipid Panel Today E78.2 - Mixed hyperlipidemia Microalbumin, Random (w Creat) Today I10 - Essential (primary) hypertension Complete Blood Count no Diff Today I10 - Essential (primary) hypertension Hemoglobin A1c Today R73.09 - Other abnormal glucose Medications: New fluconazole (Diflucan) 200 mg (5 mL) PO DAILY 7 days 35 mL 0RF B37.81 - Candidal esophagitis calcium carbonate-vitamin D3 600 mg-20 mcg (800 unit) 1 tab PO DAILY 90 days 90 tabs 1RF ondansetron HCl 4 mg PO Q8H 7 days PRN 21 tabs 0RF nausea and vomiting R73.09 - Other abnormal glucose Coding Level of Care Code Est Pt Level 4 (64745) Diagnoses Esophageal candidiasis B37.81 HTN (hypertension) I10 Hypertension type: essential hypertension Lumbosacral neuritis M54.17 HLD (hyperlipidemia) E78.2 Hyperlipidemia type: mixed hyperlipidemia
== END 2023-01-21 10:45 | disposition home or self-care (01) ==
PROVIDERS: PCP Physician Assistant; Visit Provider Physician Assistant
DX: B37.81 Candidal esophagitis (principal); I10 Essential (primary) hypertension; M54.17 Radiculopathy, lumbosacral region; E78.2 Mixed hyperlipidemia
CPT/HCPCS: 99214

== ENCOUNTER 2023-04-08 10:39 | Outpatient (REF) | payer MEDICARE, MEDICAID, SELFPAY ==
[2023-04-08 13:47] LABS: Hematocrit 38.4 % (37.0-47.0); Hemoglobin 12.8 g/dl (12.0-16.0); Mean Corpuscular HGB Conc 33.3 g/dl (31.0-35.0); Mean Corpuscular Hemoglobin 31.8 pg (27.0-33.0); Mean Corpuscular Volume 95.3 fL (80.0-98.0); Mean Platelet Volume 9.9 fL (9.4-12.3); Platelet Count 395 X10*3/uL (160-400); Red Blood Count 4.03 X10*6/uL (4.20-5.50); Red Cell Distribution Width 12.5 % (11.0-16.0)
[2023-04-08 13:54] LABS: Estimated Average Glucose 85 mg/dL; Hemoglobin A1c % 4.6 % (<6.0)
[2023-04-08 14:08] LABS: Alanine Aminotransferase 24 U/L (0-31); Albumin Level 4.4 g/dL (3.5-5.0); Alkaline Phosphatase 92 U/L (39-117); Anion Gap 17 (12-20); Aspartate Amino Transferase 31 U/L (5-31); Bilirubin Total 0.8 mg/dL (0.0-1.0); Blood Urea Nitrogen 11 mg/dL (9-16); Calcium 10.3 mg/dL (8.4-10.2); Carbon Dioxide 27 mmol/L (22-29); Chloride 97 mmol/L (96-108); Cholesterol 194 mg/dL (<200); Estimated Glomerular Filt Rate > 60; Glucose Fasting 98 mg/dL (60-99); HDL Cholesterol 85 mg/dL (>40); LDL Cholesterol Calculated 87 mg/dL (<100); Potassium 3.6 mmol/L (3.3-5.1); Sodium 137 mmol/L (135-145); Total Protein 7.5 g/dL (6.5-8.0); Triglycerides 113 mg/dL (<150)
[2023-04-08 14:29] LABS: TSH reflex Free T4 0.74 uIU/mL (0.32-4.0)
[2023-04-08 14:37] LABS: Creatinine Urine 213.13 mg/dL; Microalbum/Creatinine Ratio Ur 6.5 ug/mg cr (<30)
== END 2023-04-08 10:40 | disposition home or self-care (01) ==
LOC: HO.HMGCLDS 10:39
PROVIDERS: PCP Physician Assistant; Visit Provider Physician Assistant
DX: I10 Essential (primary) hypertension (principal); R73.09 Other abnormal glucose; E78.2 Mixed hyperlipidemia
CPT/HCPCS: 36415; 80053; 80061; 82043; 82570; 83036; 84443; 85027

== ENCOUNTER 2023-04-28 09:26 | Outpatient (AMB) | payer MEDICARE, MEDICAID, SELFPAY ==
[2023-04-28 09:28] VITALS: BP 130/80; PULSE 84; O2SAT 98; BMI 21.6
--- NOTE | 2023-04-28 09:28 | A.OFFPC_ITS ---
Vital Signs 04/28/23 09:28 Height 5 ft 3 in Weight 122 lb 2 oz BMI 21.6 BP 130/80 Blood Pressure Location Lt brachial Position Sitting Pulse 84 Pulse Source Pulse Oximeter Pulse Oximetry (%) 98 Oxygen Delivery Method Room Air Intake Visit Reasons: Annual Exam Power Cleaner Operator Required: No Accompanied by: Self / Same As Patient Allergies gabapentin [GABAPENTIN] Allergy (Severe, Verified 04/28/23 09:41) SWELLING, hives Iodinated Contrast Media [IV DYE, IODINE CONTAINING] Allergy (Severe, Verified 04/28/23 09:41) ANAPHYLAXIS Medication List - Last Reconciled 04/28/23 by Gaston Mejia PA-C atorvastatin 40 mg PO DAILY blood pressure monitor As directed calcium carbonate-vitamin D3 600 mg-20 mcg (800 unit) 1 tab PO DAILY 90 days clonidine HCl 0.1 mg PO Q6H PRN cyclobenzaprine 10 mg PO Q12H dicyclomine 20 mg PO hydrochlorothiazide 25 mg PO DAILY 90 days omeprazole 20 mg PO DAILY trazodone 100 mg PO BEDTIME Tobacco use date assessed: 06/24/22 Dental Screening Dental Screen Date: 04/28/23 Did you have a dental visit in the last 12 months?: Yes Did you have a dental problem in the last 6 months where you did not have access to dental care?: No Was dental information given to patient?: Patient has dentist HPI Annual Exam HPI Details Patient is a 63 -year-old female here today for routine annual physical.. Patient has a past medical history significant for lumbosacral neuritis, anxiety, hypertension, hyperlipidemia depression, cervical radiculopathy, osteonecrosis of right ankle and hips. Concerns--> she reports hair thinning over her scalp. .. Hyperlipidemia:? Has been on statin therapy.? Most recent cholesterol panel has improved. . Hypertension:? She reports blood pressures at home have been stable.? Denies any headaches, chest discomfort or palpitations.? Will continue her on current dose of lisinopril hydrochlorothiazide.. .. Lumbar sacral neuritis: Has discontinued the use of Belbuca as she feels not effective. She is willing to try nonnarcotic medications for her pain. Mammogram: needs up-to-date Mammo- Vaccines: utd with COVID, FLu and Tdap , Need Shingles vaccine , Colon cancer screening: Sees Dr. West- had colonoscopy in 2019 -polyp found - tubular adenoma -repeat 5 years Laboratory Tests 04/08/23 10:47 RBC 4.03 L Hgb 12.8 Creatinine 0.68 Cholesterol 194 LDL Cholesterol, C alc 87 Urine Microalbumin 14.0 PFSH Medical History History of avascular necrosis of capital femoral epiphysis Lumbosacral neuritis Cervical radiculopathy HTN (hypertension) Depression Anxiety IBS (irritable bowel syndrome) FH: bilateral hip replacements Surgical History History of fusion of cervical spine History of left hip replacement History of right hip replacement History of right knee joint replacement Status post right knee replacement H/O breast implant H/O cervical discectomy History of ankle surgery Family History Father Schizophrenia Mother Osteoporosis Son No problems noted. Maternal Grandfather No problems noted. Brother In good health Sister In good health Other Mental health disorder Substance use disorder Social History (Updated 04/28/23 @ 09:53 by Gaston Mejia PA-C) Housing: Apartment Alcohol intake: current Alcohol intake frequency: a few times a week Alcohol type: beer Patient Tobacco Use Status: Never used Tobacco e-Cigarette/Vaping Use: Never Used Second Hand Smoke Exposure: Yes service: No Current occupational status: disabled Cognitive needs: No Hearing needs: No Vision needs: No Questionnaire Thrive Questionnaire Date Thrive assessed: 06/24/22 FAWN-7 AMB Questionnaire FAWN-7 Date FAWN - 7 assessed: 06/24/22 Source: Developed by Drs. Paul Fraser, Kelsey Salcido, Jj Bateman and colleagues, with an educational denise from [employer]. Review of Systems Const Denies body aches, Denies chills, Denies excessive sweating, Denies fatigue, Denies fever(s) and Denies headache(s) Eyes Denies blurry vision ENT Denies dysphagia, Denies vertigo, Denies dizziness, Denies headache(s), Denies hearing loss and Denies tinnitus Card Denies chest pain, Denies chest pain with activity, Denies syncope, Denies irregular heart rhythm and Denies dyspnea Resp Denies chest congestion, Denies cough, Denies hemoptysis, Denies dyspnea and Denies wheezing GI Denies abdominal pain, Denies melena, Denies hematochezia, Denies coffee ground emesis, Denies dysphagia, Denies diarrhea, Denies nausea and Denies vomiting Denies urinary frequency, Denies dysuria, Denies urinary hesitancy and Denies urinary urgency Musc Denies arthralgias, Denies limited range of motion, Denies muscle cramps and Denies muscle weakness Skin/Breast Denies rash and Denies skin ulcer Neuro Denies Abnormal speech present, Denies confusion, Denies vertigo, Denies dizziness, Denies syncope, Denies headache(s), Denies memory loss and Denies seizure-like activity Psych Denies anxiety, Denies confusion, Denies depression, Denies memory loss, Denies panic attacks and Denies paranoia Endo Denies excessive sweating, Denies fatigue, Denies flushing, Denies polydipsia and Denies polyuria Aller/Immun Denies wheezing Physical exam (Primary Care) Vital Signs: Last Vital Signs Pulse 84 04/28/23 09:28 BP 130/80 04/28/23 09:28 Pulse Ox 98 04/28/23 09:28 Oxygen Delivery Method Room Air 04/28/23 09:28 BMI result Body Mass Index 21.6 Tobacco/Smoking Status: Tobacco use Status Tobacco use date assessed 06/24/22 04/28/23 09:36 Patient Tobacco Use Status Never used Tobacco 04/28/23 09:53 e-Cigarette/Vaping Use Never Used 04/28/23 09:53 Thrive Assessment: Date of Thrive Assessment Date Thrive assessed 06/24/22 04/28/23 09:36 Const General: cooperative, comfortable, no acute distress, alert and awake; No confusion Orientation/consciousness: oriented to person, oriented to place, patient oriented x3 and No confusion HENMT Head: Yes normocephalic Ears: external ears normal and TM's normal bilaterally Face and sinus: No sinus tenderness Mouth: Normal oral and palatal mucosa present and tongue normal Teeth and gingiva: dentition normal and gingiva normal Throat: Yes posterior oropharynx normal, Yes tonsils normal and Yes uvula midline Eyes Conjunctivae: conjunctivae normal Sclerae: sclerae normal Pupils: Equal, round and reactive pupils present EOM: EOMs intact bilaterally Direct Ophthalmoscopy: No no photophobia Neck Neck: Yes no lymphadenopathy, No tender and Yes no JVD Thyroid: Thyroid normal Carotids: no bruits Chest Chest palpation & inspection: no tenderness Resp Effort & Inspection: normal respiratory effort, no audible wheezes, not labored and no stridor Auscultation: no crackles, no rales, no rhonchi and no wheezes Cardio Jugular venous distension: no JVD Rate: regular rate, not bradycardic and not tachycardic Rhythm: regular rhythm Bruits: no carotid bruits Peripheral pulses: Peripheral pulses 2+ throughout GI Inspection: Yes normal to inspection, No abdominal wall ecchymosis and No visible herniation Palpation (GI): Soft to palpation, nontender, no guarding, not rigid and No hepatosplenomegaly present Auscultation: normoactive bowel sounds General: Yes no CVA tenderness Back/Spine/Pelvis Back: no CVA tenderness and No back tenderness Cervical Spine: cervical ROM normal Thoracic/Lumbar Spine: thoracic and lumbar spine normal to inspection, straight leg raise negative bilaterally, No thoraco-lumbar ROM limited and No lumbar spinal tenderness Skin Lesions: no lesions Rashes: no rashes Wounds: no wounds Neuro General: oriented to person, oriented to place, patient oriented x3, CN's II-XI intact bilaterally and No confusion Cranial nerves: Yes Equal, round and reactive pupils present and Yes Normal accommodation reflex present Cognition (Neuro): normal cognition Speech: No Abnormal speech present Gait exam (Neuro): Normal gait present Motor exam (neuro): 5/5 motor strength present throughout Extrem Right upper extremity: full ROM; no cyanosis Left upper extremity: full ROM; no cyanosis Right lower extremity: no edema Left lower extremity: no edema Psych Appearance: grossly normal Mental Status: mental status grossly normal Affect: normal affect Attitude: cooperative Thought process: Normal thought process present Office Procedures Flu Questionnaire Does the patient have a severe egg allergy?: No Does the patient have severe life threatening allergies?: No Does the patient have a fever or illness today?: No Has the patient ever had Guillain-[place] Syndrome?: No Has the patient ever had any past reaction to a flu shot?: No Immunizations flu vacc [id number] 6mos up(PF) 60 mcg(15 mcgx4)/0.5 mL IM syringe Performing Provider: Gaston Mejia PA-C Performing Location: [facility] Administered by: PORTILLO Rogers on 04/28/23 10:24 Dose Route Admin Location Dispensed Lot Number Expiration Date NDC Data Analyst Report Writer 0.5 mL IM Left Deltoid 0.5 mL [id number] 12/13/23 [id number] [employer] VIS Given Date VIS Provided VIS Publication Date 04/28/23 Single Vaccine 21 Eligibility Eligibility Date Funding Source Not [facility] Eligible 04/28/23 Private Assessment and Plan Assessment & Plan (1) Annual physical exam: Code(s): Z00.00 - Encounter for general adult medical examination without abnormal findings (2) HTN (hypertension): Code(s): I10 - Essential (primary) hypertension Qualifiers: Hypertension type: essential hypertension Qualified Code(s): I10 - Essential (primary) hypertension Plan: Blood pressure acceptable today in office. Will continue her antihypertensive therapy with goal blood pressure remain below 140/90 (3) Lumbosacral neuritis: Code(s): M54.17 - Radiculopathy, lumbosacral region Plan: Patient continues to have lumbar spine pain though has been somewhat manageable with [id number] analgesics . She has stop using Belbuca acid has not been effective for her. (4) HLD (hyperlipidemia): Code(s): E78.5 - Hyperlipidemia, unspecified Qualifiers: Hyperlipidemia type: mixed hyperlipidemia Qualified Code(s): E78.2 - Mixed hyperlipidemia Plan: Patient continues on statin therapy. Will recheck fasting lipid panel to assure appropriate total cholesterol and LDL. Goal LDL to be below 130 (5) Hair thinning: Code(s): L65.9 - Nonscarring hair loss, unspecified Plan: Patient willing to try topical to help thicken hair. If treatment fails will consider dermatology evaluation. (6) Esophageal candidiasis: Code(s): B37.81 - Candidal esophagitis Plan: Seems to have completely resolved. Still has GERD symptoms from time to time.. Patient continues to follow gastroenterology. Continues on PPI therapy with good effect on reducing her GERD symptoms. No further episodes of dysphagia. Orders: Orders Lipid Panel 04/28/23 E78.2 - Mixed hyperlipidemia Complete Blood Count no Diff 04/28/23 E78.2 - Mixed hyperlipidemia Microalbumin, Random (w Creat) 04/28/23 I10 - Essential (primary) hypertension Comprehensive [place]. Panel Fast 04/28/23 E78.2 - Mixed hyperlipidemia Influenza [id number] Immunization 04/28/23 Z23 - Encounter for immunization Medications: New minoxidil 5% 1 mL topical BID 30 days 60 mL 1RF L65.9 - Nonscarring hair loss, unspecified acetaminophen ER (Tylenol Arthritis Pain) 650 mg PO Q12H 30 days 60 tabs 0RF L65.9 - Nonscarring hair loss, unspecified, M19.90 - Unspecified osteoarthritis, unspecified site Coding Level of Care Code Est Pt Prev Care 40-64y(25828) Diagnoses Annual physical exam Z00.00 Essential hypertension I10 Hypertension type: essential hypertension Lumbosacral neuritis M54.17 Mixed hyperlipidemia E78.2 Hyperlipidemia type: mixed hyperlipidemia Hair thinning L65.9 Esophageal candidiasis B37.81
== END 2023-04-28 10:14 | disposition home or self-care (01) ==
PROVIDERS: PCP Physician Assistant; Visit Provider Physician Assistant
DX: Z23 Encounter for immunization (principal)
CPT/HCPCS: 90471; 90686; 99396

== ENCOUNTER 2024-07-16 11:18 | Outpatient (REF) | payer MEDICARE, MEDICAID, SELFPAY ==
[2024-07-16 13:02] LABS: Hematocrit 41.4 % (37.0-47.0); Hemoglobin 13.8 g/dl (12.0-16.0); Mean Corpuscular HGB Conc 33.3 g/dl (31.0-35.0); Mean Corpuscular Hemoglobin 30.7 pg (27.0-33.0); Mean Corpuscular Volume 92.2 fL (80.0-98.0); Mean Platelet Volume 10.2 fL (9.4-12.3); Platelet Count 488 X10*3/uL (160-400); Red Blood Count 4.49 X10*6/uL (4.20-5.50); Red Cell Distribution Width 13.2 % (11.0-16.0); White Blood Count 7.6 X10*3/uL (4.8-10.8)
[2024-07-16 13:18] LABS: Alanine Aminotransferase 45 U/L (0-31); Albumin Level 4.7 g/dL (3.5-5.0); Alkaline Phosphatase 86 U/L (39-117); Anion Gap 14 (12-20); Aspartate Amino Transferase 42 U/L (5-31); Bilirubin Total 0.6 mg/dL (0.0-1.0); Blood Urea Nitrogen 10 mg/dL (9-16); Calcium 9.9 mg/dL (8.4-10.2); Carbon Dioxide 26 mmol/L (22-29); Chloride 103 mmol/L (96-108); Cholesterol 202 mg/dL (<200); Estimated Glomerular Filt Rate > 60; Glucose Fasting 91 mg/dL (60-99); HDL Cholesterol 79 mg/dL (>40); LDL Cholesterol Calculated 96 mg/dL (<100); Potassium 3.9 mmol/L (3.3-5.1); Sodium 139 mmol/L (135-145); Total Protein 8.1 g/dL (6.5-8.0); Triglycerides 139 mg/dL (<150)
[2024-07-16 13:38] LABS: Creatinine Urine 106.48 mg/dL; Microalbum/Creatinine Ratio Ur 8.4 ug/mg cr (<30)
== END 2024-07-16 11:19 | disposition home or self-care (01) ==
LOC: HO.HMGCLDS 11:18
PROVIDERS: PCP Physician Assistant; Visit Provider Physician Assistant
DX: I10 Essential (primary) hypertension (principal); E78.2 Mixed hyperlipidemia
CPT/HCPCS: 36415; 80053; 80061; 82043; 82570; 85027

== ENCOUNTER 2024-07-20 11:31 | Outpatient (AMB) | payer MEDICARE, MEDICAID, SELFPAY ==
[2024-07-20 11:35] VITALS: BP 146/100; PULSE 96; TEMP 36.3; O2SAT 99; BMI 23.8
--- NOTE | 2024-07-20 11:35 | A.OFFPC_ITS ---
Vital Signs 07/20/24 11:35 Height 5 ft 3 in Weight 134 lb 8 oz BMI 23.8 BP 146/100 H Blood Pressure Location Lt brachial Position Sitting Pulse 96 Pulse Source Pulse Oximeter Temp 97.3 F Temp Source Temporal Artery Scan Pulse Oximetry (%) 99 Oxygen Delivery Method Room Air Intake Visit Reasons: PE Allergies gabapentin [GABAPENTIN] Allergy (Severe, Verified 07/20/24 11:47) SWELLING, hives Iodinated Contrast Media [IV DYE, IODINE CONTAINING] Allergy (Severe, Verified 07/20/24 11:47) ANAPHYLAXIS Medication List - Last Reconciled 07/20/24 by Gaston Mejia PA-C acetaminophen ER (Tylenol Arthritis Pain) 650 mg PO Q12H 30 days atorvastatin 40 mg PO DAILY blood pressure monitor As directed calcium carbonate-vitamin D3 600 mg-20 mcg (800 unit) 1 tab PO DAILY 90 days clonidine HCl 0.1 mg PO Q6H PRN cyclobenzaprine 10 mg PO Q12H dicyclomine 20 mg PO hydrochlorothiazide 25 mg PO DAILY 90 days minoxidil 2% 1 mL topical BID 4 weeks omeprazole 20 mg PO DAILY tramadol 50 mg PO TID PRN 7 days trazodone 100 mg PO BEDTIME Tobacco use date assessed: 06/24/22 Dental Screening Dental Screen Date: 04/28/23 HPI PE HPI Details Patient is a 64 -year-old female here today for routine annual physical.. Patient has a past medical history significant for lumbosacral neuritis, anxiety, hypertension, hyperlipidemia depression, cervical radiculopathy, osteonecrosis of right ankle and hips. Concerns--> she reports worsening osteoarthritis, particularly in the hands, that has developed over several years. She experiences significant pain in the fingers, with limited mobility and swelling, notably in the middle finger of both hands. The patient also describes severe pain in her neck, back, and ankles, accompanied by headaches and intermittent numbness of the face and arms. She has been disabled for some time due to these issues. Multiple joint replacements have been previously performed because of severe arthritis. .. Hyperlipidemia:? Has been on statin therapy.? Most recent cholesterol panel has improved. . Hypertension:? She reports blood pressures at home have been stable.? Denies any headaches, chest discomfort or palpitations.? Will continue her on current dose of lisinopril hydrochlorothiazide.. .. Lumbar sacral neuritis: She is discontinue Belbuca a few years ago as it was ineffective for her. She is willing to try meloxicam for her arthritic pain. We did discuss her being a decent candidate for medical marijuana due to her chronic pain and pretty severe osteoarthritis in both knees, neck and bilateral ankles. Mammogram: needs up-to-date Mammo- [facility] ERP ARCHITECT: had hysterctomy Vaccines: utd with COVID, FLu and Tdap , Need Shingles vaccine , Colon cancer screening: Sees Dr. West- had colonoscopy in 2018 -polyp found - tubular adenoma -need repeat in 2023 Laboratory Tests 04/08/23 07/16/24 07/16/24 10:47 11:20 11:25 RBC 4.49 Hgb 13.8 AST 42 H ALT 45 H Cholesterol 194 202 H Urine Microalbumin 9.0 PFSH Medical History History of avascular necrosis of capital femoral epiphysis Lumbosacral neuritis Cervical radiculopathy HTN (hypertension) Depression Anxiety IBS (irritable bowel syndrome) FH: bilateral hip replacements Surgical History History of fusion of cervical spine History of left hip replacement History of right hip replacement History of right knee joint replacement Status post right knee replacement H/O breast implant H/O cervical discectomy History of ankle surgery Family History Father Schizophrenia Mother Osteoporosis Son No problems noted. Maternal Grandfather No problems noted. Brother In good health Sister In good health Other Mental health disorder Substance use disorder Social History (Updated 07/20/24 @ 11:52 by Gaston Mejia PA-C) Housing: Apartment Alcohol intake: current Alcohol intake frequency: a few times a week Alcohol type: beer Patient Tobacco Use Status: Never used Tobacco e-Cigarette/Vaping Use: Never Used Second Hand Smoke Exposure: Yes service: No Current occupational status: disabled Cognitive needs: No Hearing needs: No Vision needs: No Questionnaire PHQ-9 Over the last 2 weeks, how often have you been bothered by any of the following problems? 1. Little interest or pleasure in doing things: not at all 2. Feeling down, depressed, or hopeless: not at all 3. Trouble falling or staying asleep, or sleeping too much: not at all 4. Feeling tired or having little energy: not at all 5. Poor appetite or overeating: not at all 6. Feeling bad about yourself - or that you are a failure or have let yourself or your family down: not at all 7. Trouble concentrating on things, such as reading the newspaper or watching television: not at all 8. Moving or speaking so slowly that other people could have noticed. Or the opposite - being so fidgety or restless that you have been moving around a lot more than usual: not at all 9. Thoughts that you would be better off or of hurting yourself in some way: not at all Total score: 0 Depression Screening Interpretation: Negative Depression Screening Done: Yes 47919 - PHQ-9 Billing: Yes Source: Developed by Drs. Paul Fraser, Kelsey Salcido, Jj Bateman and colleagues, with an educational denise from [employer]. Thrive Questionnaire Date Thrive assessed: 07/20/24 I am a: Patient What is your living situation today?: I have a steady place to live Within the past 12 months, did the food you bought not last and you didn't have the money to get more?: Never true Within the past 12 months, did you worry whether your food would run out before you got money to buy more?: Never true Do you have trouble paying for medicines?: No Do you have trouble getting transportation to medical appointments?: No Do you have trouble paying your heating and electricity bill?: No Do you have trouble taking care of your child, family member or friend?: No Do you have trouble with day-to-day activities such as bathing, preparing meals, shopping, managing finances, etc.?: No Are you currently unemployed and looking for a job?: No Are you interested in more education?: No Please select the resources that you would like help with: None Currently or been in a relationship where the following occur: No concerns reported THRIVE Score: 0 AUDIT C Alcohol Use Questionnaire (AUDIT-C) 1. How often do you have a drink containing alcohol?: Monthly or less 2. How many drinks containing alcohol do you have on a typical day when you are drinking?: 1 or 2 3. How often do you have six or more drinks on one occasion?: Never Total Score: 1 FAWN-7 AMB Questionnaire FAWN-7 Date FAWN - 7 assessed: 07/20/24 Feeling nervous, anxious, or on edge: 0 = Not at all Not being able to stop or control worryin = Not at all Worrying too much about different things: 0 = Not at all Trouble relaxin = Not at all Being so restless that it is hard to sit still: 0 = Not at all Becoming easily annoyed or irritable: 0 = Not at all Feeling afraid as if something awful might happen: 0 = Not at all Total FAWN-7 score (0-4 normal; 5-9 mild; 10-14 moderate; 15-21 severe): 0 Source: Developed by Drs. Paul Fraser, Kelsey Salcido, Jj Bateman and colleagues, with an educational denise from [employer]. FANW-7 Assessment Billing FAWN-7 Assessment Tool: FAWN-7 Assessment 53737 Review of Systems Const Denies body aches, Denies chills, Denies excessive sweating, Denies fatigue, Denies fever(s) and Denies headache(s) Eyes Denies blurry vision ENT Denies dysphagia, Denies vertigo, Denies dizziness, Denies headache(s), Denies hearing loss and Denies tinnitus Card Denies chest pain, Denies chest pain with activity, Denies syncope, Denies irregular heart rhythm and Denies dyspnea Resp Denies chest congestion, Denies cough, Denies hemoptysis, Denies dyspnea and Denies wheezing GI Denies abdominal pain, Denies melena, Denies hematochezia, Denies coffee ground emesis, Denies dysphagia, Denies diarrhea, Denies nausea and Denies vomiting Denies urinary frequency, Denies dysuria, Denies urinary hesitancy and Denies urinary urgency Musc Denies arthralgias, Denies limited range of motion, Denies muscle cramps and Denies muscle weakness Skin/Breast Denies rash and Denies skin ulcer Neuro Denies Abnormal speech present, Denies confusion, Denies vertigo, Denies dizziness, Denies syncope, Denies headache(s), Denies memory loss and Denies seizure-like activity Psych Denies anxiety, Denies confusion, Denies depression, Denies memory loss, Denies panic attacks and Denies paranoia Endo Denies excessive sweating, Denies fatigue, Denies flushing, Denies polydipsia and Denies polyuria Aller/Immun Denies wheezing Physical exam (Primary Care) Vital Signs: Last Vital Signs Temp 97.3 F 07/20/24 11:35 Pulse 96 07/20/24 11:35 BP 146/100 H 07/20/24 11:35 Pulse Ox 99 07/20/24 11:35 Oxygen Delivery Method Room Air 07/20/24 11:35 BMI result Body Mass Index 23.8 Tobacco/Smoking Status: Tobacco use Status Tobacco use date assessed 06/24/22 07/20/24 11:39 Patient Tobacco Use Status Never used Tobacco 07/20/24 11:52 e-Cigarette/Vaping Use Never Used 07/20/24 11:52 PHQ-9: PHQ-9 Score PHQ-9: Total score 0 07/20/24 13:32 Depression Screening Interpretation: Negative Thrive Assessment: Date of Thrive Assessment Date Thrive assessed 07/20/24 07/20/24 11:39 Currently or been in a relationship where the following occur: No concerns reported Const General: cooperative, comfortable, no acute distress, alert and awake; No confusion Orientation/consciousness: oriented to person, oriented to place, patient oriented x3 and No confusion HENMT Head: Yes normocephalic Ears: external ears normal and TM's normal bilaterally Face and sinus: No sinus tenderness Mouth: Normal oral and palatal mucosa present and tongue normal Teeth and gingiva: dentition normal and gingiva normal Throat: Yes posterior oropharynx normal, Yes tonsils normal and Yes uvula midline Eyes Conjunctivae: conjunctivae normal Sclerae: sclerae normal Pupils: Equal, round and reactive pupils present EOM: EOMs intact bilaterally Direct Ophthalmoscopy: No no photophobia Neck Neck: Yes no lymphadenopathy, No tender and Yes no JVD Thyroid: Thyroid normal Carotids: no bruits Chest Chest palpation & inspection: no tenderness Resp Effort & Inspection: normal respiratory effort, no audible wheezes, not labored and no stridor Auscultation: no crackles, no rales, no rhonchi and no wheezes Cardio Jugular venous distension: no JVD Rate: regular rate, not bradycardic and not tachycardic Rhythm: regular rhythm Bruits: no carotid bruits Peripheral pulses: Peripheral pulses 2+ throughout GI Inspection: Yes normal to inspection, No abdominal wall ecchymosis and No visible herniation Palpation (GI): Soft to palpation, nontender, no guarding, not rigid and No hepatosplenomegaly present Auscultation: normoactive bowel sounds General: Yes no CVA tenderness Back/Spine/Pelvis Back: no CVA tenderness and No back tenderness Cervical Spine: cervical ROM normal Thoracic/Lumbar Spine: thoracic and lumbar spine normal to inspection, straight leg raise negative bilaterally, No thoraco-lumbar ROM limited and No lumbar spinal tenderness Skin Lesions: no lesions Rashes: no rashes Wounds: no wounds Neuro General: oriented to person, oriented to place, patient oriented x3, CN's II-XI intact bilaterally and No confusion Cranial nerves: Yes Equal, round and reactive pupils present and Yes Normal accommodation reflex present Cognition (Neuro): normal cognition Speech: No Abnormal speech present Gait exam (Neuro): Normal gait present Motor exam (neuro): 5/5 motor strength present throughout Extrem Right upper extremity: full ROM; no cyanosis Left upper extremity: full ROM; no cyanosis Right lower extremity: no edema Left lower extremity: no edema Psych Appearance: grossly normal Mental Status: mental status grossly normal Affect: normal affect Attitude: cooperative Thought process: Normal thought process present Coding Level of Care Code Est Pt Prev Care 40-64y(23838) Diagnoses Annual physical exam Z00.00 Mixed hyperlipidemia E78.2 Hyperlipidemia type: mixed hyperlipidemia Essential hypertension I10 Hypertension type: essential hypertension Arthritis of both hands M19.041; M19.042 Laterality: bilateral Elevated liver enzymes R74.8 Migraine without status migrainosus, not intractable, unspecified migraine type G43.909 Intractability: not intractable Migraine type: unspecified Status migrainosus presence: without status migrainosus Encounter for screening mammogram for malignant neoplasm of breast Z12.31 Breast cancer screening modality: mammogram Tubular adenoma of colon D12.6 Additional Codes FAWN-7 Assessment Billing - FAWN-7 Assessment Tool: FAWN-7 Assessment 21920 ([id number]) PHQ-9 - 39323 - PHQ-9 Billing: Yes ([id number]) Assessment & Plan Assessment & Plan (1) Annual physical exam: Code(s): Z00.00 - Encounter for general adult medical examination without abnormal findings Category: Medical Plan: As per HPI (2) HLD (hyperlipidemia): Code(s): E78.5 - Hyperlipidemia, unspecified Category: Medical Qualifiers: Hyperlipidemia type: mixed hyperlipidemia Qualified Code(s): E78.2 - Mixed hyperlipidemia Plan: Patient continues with atorvastatin 40 mg without side effect. Most recent lipid panel showing good control over total cholesterol and LDL. Will continue to follow fasting lipid panel with goal LDL to be below 130 (3) HTN (hypertension): Code(s): I10 - Essential (primary) hypertension Category: Medical Qualifiers: Hypertension type: essential hypertension Qualified Code(s): I10 - Essential (primary) hypertension Plan: Patient's blood pressure slightly elevated today in office, has been in some moderate to severe arthritic pain. She continues with hydrochlorothiazide (4) Hand arthritis: Code(s): M19.049 - Primary osteoarthritis, unspecified hand Category: Medical Qualifiers: Laterality: bilateral Qualified Code(s): M19.041 - Primary osteoarthritis, right hand; M19.042 - Primary osteoarthritis, left hand Plan: Patient does have pretty severe arthritis particular at the PIP joints. Would benefit from rheumatology evaluation. Will start up workup with x-rays and rheumatology testing. Will supply patient meloxicam to use for anti inflammatory. Has done occupational therapy for her hand pain in the past though did not feel it was helpful. (5) Elevated liver enzymes: Code(s): R74.8 - Abnormal levels of other serum enzymes Category: Medical Plan: Noted elevated liver enzymes likely secondary to Tylenol use recently. (6) Migraines: Code(s): G43.909 - Migraine, unspecified, not intractable, without status migrainosus Category: Medical Qualifiers: Intractability: not intractable Migraine type: unspecified Status migrainosus presence: without status migrainosus Qualified Code(s): G43.909 - Migraine, unspecified, not intractable, without status migrainosus Plan: Patient reports having more migraine headaches as of late in the setting of neck pain. She has upcoming appointment with Dr. Trujillo her orthopedic neck surgeon for evaluation. (7) Breast cancer screening: Code(s): Z12.39 - Encounter for other screening for malignant neoplasm of breast Category: Medical Qualifiers: Breast cancer screening modality: mammogram Qualified Code(s): Z12.31 - Encounter for screening mammogram for malignant neoplasm of breast Plan: Patient willing to do mammogram (8) Tubular adenoma of colon: Code(s): D12.6 - Benign neoplasm of colon, unspecified Category: Medical Plan: Patient in need of repeat colonoscopy, tubular adenoma polyp found in 2019 Plan Goal: Blood pressure to be below 140/90, LDL to be below 130 Barriers: Adherence to physical activity and healthy eating habits Orders: Orders MSAON Reflex Titer and Pattern Today M19.049 - Primary osteoarthritis, unspecified hand Rheumatoid Factor Today M19.049 - Primary osteoarthritis, unspecified hand XR hand RT 2V Today M19.049 - Primary osteoarthritis, unspecified hand Cyclic Citrullinated Peptide Today M19.049 - Primary osteoarthritis, unspecified hand XR hand LT 2V Today M19.049 - Primary osteoarthritis, unspecified hand Referrals Gastroenterology Referral D12.6 - Benign neoplasm of colon, unspecified Rheumatology Referral M19.049 - Primary osteoarthritis, unspecified hand Medications: New meloxicam 15 mg PO DAILY 30 tabs 3RF 30 days M19.049 - Primary osteoarthritis, unspecified hand sumatriptan succinate take 1 tab at onset of headache; if no relief may repeat 1 tab after at least 2 hrs; max = 4 tabs/24 hr PO 9 tabs 0RF 30 days G43.909 - Migraine, unspecified, not intractable, without status migrainosus Refilled tramadol Take ONLY as needed for severe pain 50 mg PO TID PRN 20 tabs 0RF pain 7 days Z98.1 - Arthrodesis status
--- OUTSIDE RECORDS SUMMARY | 2024-07-20 13:24 | XMS_ITS | Data Portability ---
Author Organization [facility], PAIN OFFICE Address [address] [place] [address] Care Team Providers Care Nurse Rn Bsn Name Role Phone RUSTY BANKS Primary Care Provider MECCA CHRISTIAN Referring Provider Assessment Encounter Date Assessment Date Assessment LastModified by Organization Details LastModified Time 03/25/2018 03/25/2018 Eulalia Cosby i s a 58 year old Right handed woman with complaints of neck pain radiating into right side of her head and associated with headaches and numbness in the right side of her face. She is S/P C4-5 and C5-6 level ACDF . On Exam, she has tenderness in the region of the right occipital nerve . Tenderness is also elicited in the right facet joint regions.CT Scan Cervical Spine shows evidence of previous ACDF procedures at C4-5 and C5-6 levels. DDD and spondylosis at C3-4 and C6-7 with mild degrees of anterolisthesis at C2-3 and C7-T1. Disc osteophyte complex posteriorly at C3-4 and possible central to left central disc herniation at C6-7 suggesting possible cord impingement at these levels with mild degrees of canal compromise. MRI suggested to further assess this. Moderate to severe bilateral bony neural foraminal stenosis at C3-4.Multilevel bilateral facet arthrosis. Lordotic loss with straightening of the cervical spine and mild upper cervical levo curvature. We discussed treatment options. 1. I recommend a neurology consult for her right sided facial numbness and pain. 2. She has neck pain and has features of facet related pain . CT Scan shows facet arthrosis. I have explained that I do not do facet joint injections in my office. She can discuss a referral to another pain management center with her PCP / Orthopedic surgeon if she wishes to proceed with the injections. 3. She may benefit from a trial of occipital nerve block for her right sided headache under ultrasound guidance. [email or web address] Not available 04/15/2018 16:15:32 Plan of Treatment Reminders Order Date Submit Date Provider Last Modified By Organization Details Last Modified Time Details Appointments None record ed. Lab None record ed. Referral None record ed. Procedures None record ed. Surgeries None record ed. Imaging None record ed. Medication Orders None record ed. Patient TargetsNo targets recorded. Patient Instructions Encounter Date Encounter Id Patient Instructions Last Modified By Organization Details Last Modified Time 03/25/2018 [id number] She was advised against bed rest lasting longer than four days and to continue activities as tolerated. [email or web address] Not available 04/15/2018 16:14:22 Reason for Referral None Reported. Problems Name Problem SNOMED Code Status Onset Date Resolution Date Notes Provider Name and Address Organization Details Recorded Time Degeneration of cervical intervertebral disc [id number] Esther lanza MD [address] [facility] , [address], [place], [address], [place] [facility] 8 09:27:24 Muscle pain 46468157 Esther lanza MD [address] [facility] , [address], [place], [address], [place] [facility] 8 09:27:36 Cervical spondylosis without myelopathy [id number] Esther lanza MD [address] [facility] , [address], [place], [address], [place] [facility] 8 16:11:28 Problem Notes None recorded. Procedures Surgical History Date Name Laterality Status Provider Name and Address Organization Details Recorded Time Joint Replacement completed Allison Rousseau [place] [facility] 03/25/2018 09:34:40 Joint Replacement completed Allison Rousseau [facility] 03/25/2018 09:34:24 Other completed Allison Rousseau [facility] 03/25/2018 09:35:24 Other completed Allison Rousseau [facility] 03/25/2018 09:36:02 Imaging Results None recorded. Procedure Notes None recorded. Medical Equipment None Reported. Allergies Allergen ID Allergen Name Allergen Category Reaction Reaction Severity Criticality Documentation Date Start Date Code Code System Note Provider Name and Address Organization Details Recorded Time 93665 gabapkjll n medicatio n hives Not available Not available 03/25/2018 88464 RxNorm Allison Rousseaukeyshawn apple [facility] 8 09:23:32 42898 Iodinated contrast media (substanc e) medicatio n decreased blood pressure severe Not available 03/25/2018 78408 2004 SNOMED Allison Amatokeyshawn apple [facility] 8 09:25:13 Medications Name Sig Start Date Stop Date Status Note LastModified by Organization Details LastModified Time cyclobenzaprine 10 mg tablet active Not Available Not Available Not Available atorvastatin 40 mg tablet active Not Available Not Available No t Available clonazepam 0.5 mg tablet active Not Available Not Available No t Available morphine ER 30 mg tablet,extended release TK 1 T PO Q 12 H active Not Available Not Available No t Available dicyclomine 20 mg tablet active Not Available Not Available No t Available Mapap (acetaminophen) 325 mg tablet TK 2 TS PO Q 12 H PRN active Not Available Not Available No t Available omeprazole 20 mg capsule,delayed release active Not Available Not Available Not Available oxycodone 30 mg tablet TK 1 T PO Q 8 H active Not Available Not Available No t Available lisinopril 10 mg-hydrochloroth iazide 12.5 mg tablet active Not Available Not Available Not Available methylprednisolo ne 4 mg tablets in a dose pack 03/25 completed Not Available Not Available Not Available fluoxetine 20 mg capsule active Not Available Not Available Not Available Vitals Date Recorded Body height Body mass index (BMI) Body weight Heart rate Oxygen saturation Oxygen saturation in Arterial blood by Pulse oximetry Systolic blood pressure Diastolic blood pressure Provider Name and Address Organization Details Last Updated DateTime 8 160.02 cm 26 kg/m2 18352.0 8 g 78 /min 97 % 97 % 146 mm[Hg] 93 mm[Hg] Allison Rousseau [facility] 8 09:22:41 Social History Question Answer Notes LastModified by Organizat ion Details LastModified Time Tobacco Smoking Status Never Smoker Quit x 30 years Not Available [employer] 03/30/2020 03:16:11 What Is Your Level Of Alcohol Consumption? Moderate [id number] Information not available 03/30/2020 Are You Currently Employed? No [id number] Information not available 03/30/2020 Which Illicit Or Recreational Drugs Have You Used? No [id number] Information not available 03/30/2020 Education 12 With Some College Information not available 03/25/2018 What Is Your Occupation? Disabilty [id number] Information not available 03/30/2020 Live Alone Or With Others? With Others Information not available 03/25/2018 Marital Status Informatio n not available 03/25/2018 What Was The Date Of Your Most Recent Tobacco Screening? 04/15/2018 [id number] Information not available 03/30/2020 How Many Years Have You Smoked Tobacco? 5 [id number] Information not available 03/30/2020 Sex: Unknown Functional Status None recorded. Mental Status None recorded. Family History Relationship Description Onset Age of this Age Resolved Age Notes LastModified by Organization Details LastModified Time Father No current problems or disability Not available 03/25 09:30:42 Mother No current problems or disability Not available 03/25 09:30:42 Medical History Condition Response Anxiety Disorder Y Headache Y Arthritis Y GERD/Reflux Y Fibromyalgia Y Irritable Bowel Syndrome Y Hypertension Y Depression Y Gynecological HistoryNo gynecological history recorded. Obstetrics History GPAL:G 0 P 0 0 0 0 Past Encounters Encounter ID Performer Location Encounter Start Date Encounter Closed Date Diagnosis/Indication Diagnosis SNOMED-CT Code Diagnosis ICD10 Code Diagnosis Note [id number] Kristopher Alvarez MD PAIN OFFICE [address] [place] [phone] 03/25/2018 09:02:17 04/15/2018 16:16:43 Degeneration of cervical intervertebral disc 93825077 M50.30 Muscle pain 67272953 M79 .10 Cervical s pondylosis without myelopathy 074666053 M47.812 Health Concerns Section Related Observation LastModified by Organization Detai ls LastModified Time None Recorded Concern Status LastModified by Organization Details LastModified Time None Recorded Advance Directives Directive None Recorded Payers Encounter Date Sequence Insurance Name Policy Number Policy Looney Covered Member ID Looney Member ID Guarantor Name 03/25/2018 1 MEDICARE [place]: [employer] Eulalia Cosby [id number] Eulalia Cosby 03/25/2018 2 MED[place]ID-[place]: [facility] Eulalia Cosby [id number] Eulalia Cosby Notes Date Note Type Note Provider Name and Address Organization Details Recorded Time 03/25/2018 text/html Eulalia Cosby i s a 58 year old Right handed woman with complaints of neck pain radiating into right side of her head and associated with headaches and numbness in the right side of her face. She describes the pain as a sharp stabbing pain. Current pain level ranges from 4-10/10. Pain interferes with sleep. Nothing relieves the pain. Pain is present constantly.She had injections done at [facility] in her lumbar spine which helped .She had a course of oral steroids which did not help. She is S/P C4-5 and C5-6 anterior cervical fusion. She has no radiating pain in her upper extremities . She states she has pain in her left shoulder. She has no history of bladder or bowel incontinence.CT Scan Cervical Spine shows evidence of previous ACDF procedures at C4-5 and C5-6 levels. DDD and spondylosis at C3-4 and C6-7 with mild degrees of anterolisthesis at C2-3 and C7-T1. Disc osteophyte complex posteriorly at C3-4 and possible central to left central disc herniation at C6-7 suggesting possible cord impingement at these levels with mild degrees of canal compromise. MRI suggested to further assess this. Moderate to severe bilateral bony neural foraminal stenosis at C3-4.Multilevel bilateral facet arthrosis. Lordotic loss with straightening of the cervical spine and mild upper cervical levo curvature. Kristopher Alvarez MD [address] [place] [address] , [address], [place], [address], [facility] 04/15/2018 16:20:03 OBGyn Episode No OBEpisode recorded.
--- OUTSIDE RECORDS SUMMARY | 2024-07-20 13:24 | XMS_ITS | Clinical Summary ---
Author Organization [facility] Address [address] [place] [address] Care Team Providers Care Cognos Architect Name Role Phone Gaston Mejia Primary Care Provider + Allergies Active Allergy Reactions Criticality Noted Date Comments Gabapentin Hives Medium 10/26/2015 Iodinated Contrast Media Unknown/Patient and Family Unable to Define Medium 10/26/2015 Medications Medication Sig Dispensed Refills Start Date End Date Status atorvastatin (LIPITOR) 40 MG tablet Take 1 tablet (40 mg total) by mouth daily. 11/19/2022 Active Belbuca [address] FILM BUCCALLY EVERY 12 HOURS 10/28/2022 Active cyclobenzaprine (FLEXERIL) 10 MG tablet Take 1 tablet (10 mg total) by mouth twice daily (every 12 hours). 11/16/2022 Active dicyclomine (BENTYL) 20 MG tablet 12/15/2022 Active DULoxetine (CYMBALTA) 40 MG capsule Take 1 capsule (40 mg total) by mouth daily. 11/16/2022 Active hydrOXYzine HCl (ATARAX) 25 MG tablet Take 1 tablet (25 mg total) by mouth 2 (two) times a day as needed. FOR INSOMNIA 09/27/2022 Active lisinopril-hydroCHLOR Othiazide (PRINZIDE,ZESTORETIC) 10-12.5 MG per tablet Take 1 tablet by mouth daily. 09/17/2022 Active OMEprazole (PriLOSEC) 20 MG capsule Take by mouth daily. 11/13/2022 Active fluconazole (diFLUcan) 40 MG/ML suspensionIndications :Hillary esophagitis (HCC) Take 10 mL (400 mg total) by mouth every 24 hours around the clock. Do not start before December 29, 2022. 120 mL 12/29/2022 Active LORazepam (ATIVAN) 0.5 MG tabletIndications:Dys phagia Take 1 tablet (0.5 mg total) by mouth 2 times daily (every 12 hours) as needed for anxiety. 6 tablet 12/28/2022 Active ibuprofen (MOTRIN) 100 mg/5 mL suspensionIndications :Hillary esophagitis (HCC) Take 10 mL (200 mg total) by mouth 3 (three) times a day. 210 mL 12/28/2022 Active Active Problems Problem Noted Date Diagnosed Date Peritonsillar abscess 12/22/2022 Dysphagia 12/21/2022 Social History Tobacco Use Types Packs/Day Years Used Date Smoking Tobacco: Former Cigarettes Smokeless Tobacco: Current Tobacco Cessation:Ready to Q uit: Not Asked; Counseling Given: Not Answered AUDIT-C Answer Date Recorded Q1: How often do you have a drink containing alc ohol? 2-4 times a month 12/22/2022 Q2: How many drinks containi ng alcohol do you have on a typical day when you are drinking? 1 or 2 12/22/2022 Q3: How often do you have si x or more drinks on one occasion? Never 12/22/2022 Overall Financial Resource Strain (CARDIA) Answe r Date Recorded How hard is it for you to pa y for the very basics like food, housing, medical care, and heating? Not hard at all 12/22/2022 Hunger Vital Sign Answer Date Recorded Within the past 12 months, y ou worried that your food would run out before you got the money to buy more. Never true 12/23/19 23 Within the past 12 months, t he food you bought just didn't last and you didn't have money to get more. Never true 12/22/2022 PRAPARE - Transportation Answer Date Re corded In the past 12 months, has l ack of transportation kept you from medical appointments or from getting medications? No 12/13 In the past 12 months, has l ack of transportation kept you from meetings, work, or from getting things needed for daily living? No 12/22/2022 Housing Stability Vital Sign Answer Jackson e Recorded In the last 12 months, was t here a time when you were not able to pay the mortgage or rent on time? No 12/22/2022 In the last 12 months, how many places have you lived? 1 12/22/2022 In the last 12 months, was t here a time when you did not have a steady place to sleep or slept in a nursing home (including now)? No 12/22/2022 Sex and Gender Information Value Date Recorded Sex Assigned at Female 12/22/2022 12:01 AM EDT Gender Identity Female 12/22/2022 12:01 AM EDT Sexual Orientation Heterosexual (straight) 12/22 12:01 AM EDT Last Filed Vital Signs Vital Sign Reading Time Taken Comments Blood Pressure 148/86 12/28/2022 7:00 AM EDT Pulse 73 12/28/2022 7:00 AM EDT Temperature 37.3 ??C (99.1 ??F) 12/28/2022 7:00 AM ED T Respiratory Rate 18 12/28/2022 7:00 AM EDT Oxygen Saturation 98% 12/28/2022 7:00 AM EDT Inhaled Oxygen Concentration - - Weight 49.9 kg (110 lb) 12/22/2022 4:46 AM EDT Height 160 cm (5' 3 ) 12/22/2022 4:46 AM EDT Body Mass Index 19.49 12/22/2022 4:46 AM EDT Plan of Treatment Health Maintenance Due Date Last Done Comments Hepatitis C Virus Screening 1960 DTaP/Tdap/Td Vaccines (1 - Tdap) 1981 Pap Smear (Ages 21-65) 1983 Mammogram 2002 Colonoscopy 2007 Pneumococcal Vaccines 50+ (1 of 1 - PCV) 02/29/2012 Zoster (Shingles) Vaccine (1 of 2) 02/29/2012 Influenza Vaccine 01/14/2024 COVID-19 Vaccine ( - 2023-2 5 season) 2024 RSV Vaccine 60 years and old er and Patients (1 - 1-dose 75+ series) 2037 HIV Screening Completed 12/26/2022 Hepatitis B Vaccines Aged Out No long er eligible based on patient's age to complete this topic Pneumococcal Vaccine: Pediat mariella (0-5 Years) and At-Risk Patients (6 to 49 Years) Aged Out No longer eligible b ased on patient's age to complete this topic Procedures Procedure Name Priority Date/Time Associated Diagnosis Comments HIV 1/2 AG/AB CMIA REFLEX TO CONFIRMATION Routine 12/26/2022 11:02 AM EDT from Last 3 Months or Most Recently Relevant to Health Maintenance Results * HIV 1/2 Ag/Ab CMIA Reflex to Confirmation (12/26/2022 11:02 AM EDT) HIV 1/2 Ag/Ab CMIA Nonreactive Nonreactive 12/29/2022 11:40 AM EDT [facility] Comment: Results show no evidence of infection by HIV 1/2. If clinically indicated, repeat CMIA or test by nucleic acid amplification. HIV 1/2 Antigen/Antibody CMIA reflex to confirmation AND HIV-1 RNA viral load recommended in patients who are taking or have recently taken PrEP. 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 Health Care Representa tive Donato Rowan Other 1. Health Care Represent ative Care Teams Cognos Architect Relationship Specialty Start Date End Date Gaston Mejia PA [address] [place] [phone] PCP - General Adult Health - PA/APNP/REFERENCE LIBRARIAN/PROCUREMENT INTERNSHIP 12/22/22
== END 2024-07-20 12:18 | disposition home or self-care (01) ==
PROVIDERS: PCP Physician Assistant; Visit Provider Physician Assistant
DX: Z00.00 Encounter for general adult medical examination without abnormal findings (principal); E78.2 Mixed hyperlipidemia; I10 Essential (primary) hypertension; M19.041 Primary osteoarthritis, right hand; M19.042 Primary osteoarthritis, left hand; R74.8 Abnormal levels of other serum enzymes; G43.909 Migraine, unspecified, not intractable, without status migrainosus; Z12.31 Encounter for screening mammogram for malignant neoplasm of breast; D12.6 Benign neoplasm of colon, unspecified

== ENCOUNTER → 2024-07-20 11:31 | Outpatient (BNVA) | payer MEDICARE, MEDICAID, SELFPAY | PROVIDERS: PCP Physician Assistant; Visit Provider Physician Assistant | DX: Z00.00 Encounter for general adult medical examination without abnormal findings (principal); E78.2 Mixed hyperlipidemia; I10 Essential (primary) hypertension; M19.041 Primary osteoarthritis, right hand; M19.042 Primary osteoarthritis, left hand; R74.8 Abnormal levels of other serum enzymes; G43.909 Migraine, unspecified, not intractable, without status migrainosus; D12.6 Benign neoplasm of colon, unspecified | CPT/HCPCS: 96127; 99396 ==

== ENCOUNTER 2024-08-25 11:00 | Outpatient (REF) | payer MEDICARE, MEDICAID, SELFPAY ==
--- NOTE | ~2024-08-25 | XR_ITS ---
EXAMINATION: XR HAND 3 OR MORE VIEWS LEFT HISTORY: M19.049 - Primary osteoarthritis, unspecified hand COMPARISON: There are no prior studies available for comparison. FINDINGS: Three views of the left hand are submitted. The bones are osteopenic. There is no fracture or dislocation. 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 There is moderate joint space narrowing involving the DIP joints of the 4th and 5th fingers and all of the PIP joints. The soft tissues are unremarkable. XR/XR hand LT min 3V IMPRESSION: Osteopenia. Osteoarthritis of the left hand as described. Electronically signed by: Paul Gaona MD 08/25/2024 12:25 PM EDT
--- NOTE | ~2024-08-25 | XR_ITS ---
EXAMINATION: XR HAND 3 OR MORE VIEWS RIGHT HISTORY: M19.049 - Primary osteoarthritis, unspecified hand COMPARISON: There are no prior studies available for comparison. FINDINGS: Three views of the right hand are submitted. The bones are osteopenic. There is no fracture or dislocation. 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 There is moderate joint space narrowing involving the DIP joints of the 4th and 5th fingers and all of the PIP joints. The soft tissues are unremarkable. XR/XR hand RT min 3V IMPRESSION: Osteopenia. Osteoarthritis of the right hand as described. Electronically signed by: Paul Gaona MD 08/25/2024 12:24 PM EDT
--- OUTSIDE RECORDS SUMMARY | 2024-08-25 14:11 | XMS_ITS | Clinical Summary ---
Author Organization [facility] Address [address] [place] [address] Care Team Providers Care Administrative Accountant Name Role Phone Gaston Mejia Primary Care [...] place to sleep or slept in a [place] facility (including now)? 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 Health Care Representa tive Donato Rowan Other 1. Health Care Represent ative Care Teams Administrative Accountant Relationship Specialty Start Date End Date Gaston Mejia PA [address] [place] [address] [phone] PCP - General Adult Health - PA/APNP/CHILD CARE WORKER/GOVERNMENT TEACHER 12/22/22
--- OUTSIDE RECORDS SUMMARY | 2024-08-25 14:11 | XMS_ITS | Patient Health Record ---
Author Organization [facility] Address [address] [place] [address] Care Team Providers Care Game And Fish Protector Name Role Phone Gaston Mejia Primary Care Provider Unavailab Mio Gutierrez Jr Unavailable Allergies Allergen (clinical drug ingredient) Drug/Non Drug Allergy documented on EMR Reaction Allergy Type Onset Date Status gabapentin Gabapentin Unknown Drug Allergy Activ e IVP DYE (uncoded) Unknown Allergy Ac tive Reason For Referral No Information Medications Medication SIG (Take, Route, Frequency, Duration) Notes Start Date End Date Status traZODone HCl 100 MG 1 tablet at bedtime Orally Once a day Active Omeprazole 20 MG 1 capsule Orally Onc e a day for 30 days Active Readi-Cat 2 2.1 % as directed Orally 12/28/2019 Active Dicyclomine HCl 20 MG TAKE 1 TABLET BY M OUTH 2 TO 4 TIMES A DAY for 90 days Active Multi Vitamin/Minerals - as directed Orally prn Active FLUoxetine HCl 20 MG 3 capsule Orally On ce a day Active oxyCODONE HCl 30 MG 1 tablet Orally TID Active Cyclobenzaprine HCl 10 MG TK 1 T PO Q 12 H Oral DIRECTED Active Immunizations Vaccine Route Administration Date Status Comme nts Influenza Unknown 04/19/2018 Administered Influenza Unknown 02/13/2019 Administered Social History Alcohol Screen Question Answer Notes Did you have a drink contain ing alcohol in the past year? Yes How often did you have a dri nk containing alcohol in the past year? 2 to 4 times a month (2 points) How many drinks did you have on a typical day when you were drinking in the past year? 1 or 2 drinks (0 point) How often did you have 6 or more drinks on one occasion in the past year? Never (0 point) Points 2 Interpretation Negative Problems Problem Type SNOMED Code ICD Code Onset Dates Problem Status W/U Status Risk Notes Problem 35489296 Epigastric pain (R10.13) Active confirmed Problem 383621634 Gastroesophageal reflux disease without esophagitis (K21.9) Active confirmed Problem 42168236 Diarrhea, unspecified type (R19.7) Active confirmed Problem 570975652 Elevated liver function tests (R94.5) Active confirmed Problem 472599300 Right sided abdominal pain (R10.9) Active confirmed Encounters Encounter Location Date Provider Diagnosis [facility] [address] [place] [phone] 10/16/2023 Mio West Jr [facility] [address] [place] [phone] 08/04/2024 Mio West Jr Plan Of Treatment Pending Test Test Name Order Date LIVER PROFILE 09/01/2018 CT ABD & PELVIS WITH PO CONT ONLY 2019 XR GI SERIES 01/24/2020 Future Test Test Name Order Date COLONOSCOPY 06/25/2012 UPPER GI ENDOSCOPY 07/02/2018 COLONOSCOPY 07/02/2018 Insurance Providers Payer Name Payer Address Payer Phone Subscriber Number Group Number Insured Name Patient Relationship to Insured Coverage Start Date Coverage End Date MEDICARE OF [place] [address] [place] [address] [phone] [id number] JOHN OCONNELL Self - patient is the insured MEDICAID OF [facility] [address] [place] [address] [id number] JOHN OCONNELL Self - patient is the insured Medical (General) History Medical History History ICD Code irritable bowel syndrome peptic ulcer disease depression ,insomnia degenerative joint disease involving the back and neck avascular necrosis colonoscopy 09/24/18, no evid ence of colitis, tubular adenoma, five-year followup upper endoscopy , i nactive gastritis and inactive inflammation at the EG junction Surgical History Surgery Date(Month/Year) neck and back surgery for degenerative j oint disease ankle surgery with pin left hip replacement right hip replacement right knee replacement right leg with metal boom
--- OUTSIDE RECORDS SUMMARY | 2024-08-25 14:11 | XMS_ITS ---
Author Organization [facility] Address [address] [place] [phone] Care Team Providers Care Sleep Lab Technician Name Role Phone Gaston Mjeia Primary Care Provider Unavailab Mio Gutierrez Jr Unavailable Encounters Encounter Location Date Provider Diagnosis [facility] [address] [place] [phone] 08/04/2024 Mio West Jr Plan Of Treatment No Information Progress Notes * JOHN OCONNELL LDOB: [birth year] (64 yo F)Acc No.[id number]:08/04/2024 Patient:?JOHN OCONNELL :1960???Age:64 Y???Sex:Female Address:[address] [place] [address] * true * Date:? Generated for Fernando [email or web address]/Wood/eTransmitting on:?08/25/2024 02:11 PM EDT
--- OUTSIDE RECORDS SUMMARY | 2024-08-25 14:11 | XMS_ITS ---
Author Organization [facility] Address [address] [place] [phone] Care Team Providers Care Licensing Engineer Name Role Phone Gaston Mejia Primary Care Provider Unavailab Mio Gutierrez Jr Unavailable REASON FOR VISIT Patient presents today for gerd. Encounters Encounter Location Date Provider Diagnosis [facility] [address] [place] [phone] 10/19/2023 Mio West Jr Plan Of Treatment No Information Progress Notes * JOHN OCONNELL LDOB: [birth year] (64 yo F)Acc No.[id number]:10/19/2023 Progress Notes Patient:?JOHN OCONNELL Provider:?Mio West MD :1960???Age:63 Y???Sex:Female D ate:10/19/2023 Address:[address] [place] [address] [address] [place], [id number] Pcp:Gaston Mejia Subjective: * Chief Complaints: * ???1. Patient presents today for gerd. . * Medical History:? Objective: * Vitals:? Assessment: Plan: * Treatment: * * The named appointment provid er may or may not be the originator of this progress note, and it is not deemed complete until electronically signed by the appointment provider. Sign off status: Pending * Provider:?Mio West MD Date:?0 10/19/2023 Generated for Fernando mcmahon/Wood/eTransmitting on:?08/25/2024 02:10 PM EDT
--- OUTSIDE RECORDS SUMMARY | 2024-08-25 14:11 | XMS_ITS ---
Author Organization [facility] Address [address] [place] [address] Care Team Providers Care Substation Technician Name Role Phone Gaston Mejia Primary Care Provider Unavailab Mio Gutierrez Jr Unavailable REASON FOR VISIT cancelled october 18 appt Encounters Encounter Location Date Provider Diagnosis [facility] [address] [place] [address] 10/16/2023 Mio West Jr Plan Of Treatment No Information Progress Notes * JOHN OCONNELL LDOB: [birth year] (63 yo F)Acc No.[id number]:10/16/2023 Patient:?JOHN OCONNELL :1960???Age:63 Y???Sex:Female Address:[address] [place] [address] * true * Date:? Generated for Printi ng/Andraeg/eTransmitting on:?08/25/2024 02:10 PM EDT
--- OUTSIDE RECORDS SUMMARY | 2024-08-25 14:11 | XMS_ITS ---
Author Name [facility] Organization Unknown Encounters Encounter Type Encounter Reason Primary Diagnosis Location Date Inpatient Acute pharyngiti s, unspecified [facility] 12/21/2022 Ambulatory [email or web address] 12/21/2022 Ambulatory [facility] 12/21/2022 Care Team Organization Name Specialty Phone Email Start Date End Da te [facility] 12/22/2022 [facility] 12/21/20222022 [facility] 12/21/2022 12/21/2022
[2024-08-25 14:13] LABS: Rheumatoid Factor < 13.0 IU/mL (<15.0)
[2024-08-29 19:19] LABS: Cyclic Citrullinated Peptide <16 UNITS
[2024-09-01 15:32] LABS: Anti Nuclear Antibody Pattern Nuclear, Homogeneous; Anti Nuclear Antibody Screen POSITIVE (NEGATIVE); Anti Nuclear Antibody Titer 1:40 titer
== END 2024-08-25 11:01 | disposition home or self-care (01) ==
LOC: HO.HMGCX 11:00
PROVIDERS: PCP Physician Assistant; Visit Provider Physician Assistant
DX: M19.041 Primary osteoarthritis, right hand (principal); M19.042 Primary osteoarthritis, left hand
CPT/HCPCS: 36415; 73130; 86038; 86039; 86200; 86431

== ENCOUNTER → 2024-08-25 11:03 | Outpatient (BNV) | payer MEDICARE, MEDICAID, SELFPAY | PROVIDERS: PCP Physician Assistant; Visit Provider Radiology Diagnostic Radiology | DX: M19.041 Primary osteoarthritis, right hand (principal); M19.042 Primary osteoarthritis, left hand | CPT/HCPCS: 73130 ==